=== PATIENT | male | born 1995 | race Caucasian/White ===

== ENCOUNTER 2021-12-12 05:05 | Emergency (ER) | payer OTHER, SELFPAY ==
[2021-12-12 05:07] VITALS: BP 132/87; PULSE 85; RESP 18; TEMP 36.4; O2SAT 98; BMI 22.0
[2021-12-12 06:05] LABS: Absolute Lymphocyte Count 1.34 X10^3/uL (0.83-4.51); Absolute Neutrophil Count 8.3 X10^3/uL (2.0-7.7); Basophil# 0.01 X10^3/uL; Basophil% 0.1 % (0-1); Eosinophil# 0.01 X10^3/uL; Eosinophils% 0.1 % (0-5); Hematocrit 42.6 % (40-54); Hemoglobin 14.7 g/dL (13.0-16.5); Lymphocyte # 1.34 X10^3/ul (0.83-4.51); Lymphocyte % 12.9 % (19-41); Mean Corp Hgb Conc 34.5 g/dL (32-36); Mean Corpuscular Hgb 30.9 pg (27.0-32.0); Mean Corpuscular Volume 89.5 fL (80-94); Mean Platelet Vol. 10.6 fl (6.2-12.0); Monocyte# 0.68 X10^3/uL; Monocyte% 6.6 % (0-10); NRBC Flagged by Analyzer 0 % (0-5); Neutrophil # 8.29 X10^3/uL (2.7-7.7); Platelet Count 270 K/mm3 (150-450); RBC Distribution Width CV 13.2 % (11.6-14.6); RBC Distribution Width SD 42.9 fl (35.1-43.9); Red Blood Count 4.76 M/mm3 (4.6-6.2); White Blood Count 10.4 K/mm3 (4.4-11.0)
[2021-12-12 06:31] LABS: AST(SGOT) 13 U/L (15-37); Alanine Aminotransfer ALT/SGPT 28 U/L (16-61); Albumin, Serum 3.8 g/dL (3.2-5.0); Alkaline Phosphatase 61 U/L (45-117); Anion Gap 7 (5-15); BUN 13 mg/dL (7-18); Bilirubin, Direct 0.09 mg/dL (0.00-0.30); Calcium,Total 8.6 mg/dL (8.5-10.1); Chloride 111 mmol/L (98-107); Creatinine, Serum 1.08 mg/dL (0.70-1.30); EST Glomerular Filtration Rate 87 mL/min (>60); Est Glom Filt Rate - Afr Amer 106 mL/min (>60); Estimated Creatinine Clearance 96.42 ml/min; Globulin 3.2 g/dL (2.2-4.2); Glucose 105 mg/dL (74-106); Lipase 105 U/L (73-393); Potassium 3.9 mmol/L (3.5-5.1); Sodium Level 142 mmol/L (136-145)
[2021-12-12 06:53] LABS: Squamous Epithelial Cells - UA 0 SEEN /hpf (0-5); White Blood Cells 0 SEEN /hpf (0-5)
[2021-12-12 06:54] LABS: Color, Urine Yellow (Yellow); Glucose, Dipstick Normal (Normal); Ketone-Dipstick Negative (Negative); Leukocyte Esterase-Dipstick 25 /ul (Negative); Nitrite-Dipstick Negative (Negative); Occult Blood-Urine Negative /ul (Negative); Protein-Dipstick 30 mg/dl (Negative); Urine Bilirubin Dipstick Negative (Negative); Urine Clarity Clear (Clear); Urine Urobilinogen 1 mg/dl (Normal)
[2021-12-12 07:07] LABS: Bacteria 1+ /hpf (None Seen); Mucous, Urine 2+ /hpf (<or=2+); Red Blood Cells-Urine 0-5 SEEN /hpf (0-5)
[2021-12-12 07:13] VITALS: BP 130/80; PULSE 80; RESP 16; O2SAT 99
--- NOTE | 2021-12-12 07:31 | EDS_ITS ---
HPI History of Present Illness Chief Complaint: Abd Pain Narrative Narrative: Patient is a 26-year-old male with a past medical history of IBS-D. He states that over the past 5 to 7 days he has been having intermittent right-sided abdominal pain. He states the pain can worsen if he sits up or lies down. He reports has been having loose stool but this is normal with his IBS. He denies any vomiting or dysuria. He denies any recent trauma. He denies any fevers or chills. He states that family and friends have concern this could be possible appendix because of his recurrent right-sided pain and secondary to this he presents for evaluation [facility] Medical History (Updated 12/12/21 @ 07:[address] Josesito Ralph, DO) IBS (irritable bowel syndrome) Home Medications eluxadoline 100 mg tablet (Viberzi) 100 mg PO BID 30 days #60 tabs 12/12/21 [Rx Last Taken Unknown] Allergy/AdvReac Type Severity Reaction Status Date / Time No Known Allergies Allergy Verified 12/12/21 05:13 Social History Smoking Status: Current every day smoker tobacco type: e-cigarettes ROS ROS ED Constitutional Constitutional ED: Denies chills or fever(s) ENT ENT ED: Denies sore throat Cardiovascular Cardiovascular: Denies chest pain Respiratory/Chest Respiratory/Chest: Denies cough or dyspnea Gastrointestinal Gastrointestinal: Reports abdominal pain, diarrhea and nausea; Denies vomiting Genitourinary Genitourinary ED: Denies dysuria or hematuria Musculoskeletal Musculoskeletal: Denies back pain or myalgias Integumentary Denies rash Neurologic Neurologic: Denies headache(s) Hematologic/Lymphatic Hematologic/Lymphatic: Denies easy bleeding or easy bruising EXAM Physical Exam Const Vital Signs: 12/12/21 05:07 12/12/21 07:13 Temperature 97.6 F L Temperature Source Temporal Pulse Rate 85 80 Respiratory Rate 18 16 Blood Pressure 132/87 H 130/80 H Blood Pressure Mean 102 96 Pulse Ox 98 99 Oxygen Delivery Method Room Air Room Air Positive well nourished and well developed General Appearance ED: well developed HEENT Reports moist mucous membranes Eyes PERRL and EOMs intact bilaterally General Eye ED: Negative for scleral icterus Neck supple Resp normal respiratory effort and clear to auscultation bilaterally Cardio regular rate and regular rhythm Rate: other Other Details: Radial pulses are +2-4 bilaterally are equal and symmetric GI non-distended GI Narrative: Abdomen is soft and nondistended with hyperactive bowel sounds. There is pain with palpation in the right upper and right lower quadrants. No voluntary guarding or rigidity. Negative Laboy sign. Negative heel strike psoas and obturator sign. Auscultation: hyperactive bowel sounds Palpation: soft Back/Spine no CVA tenderness Extremity normal to inspection Neuro oriented x3 and CN's II-XII intact bilaterally Sensorium / Orientation: alert Psych mental status grossly normal Skin no rashes or lesions noted MDM MDM MDM Narrative Medical decision making narrative: Patient presented to the ER afebrile and with a soft nonsurgical abdomen. History and exam does not suggest acute appendicitis or gallbladder dysfunction but there is concern for this so basic laboratory studies were obtained. Patient's white count is normal and he is afebrile. Liver enzymes are normal as well as lipase going against pancreatitis or gallbladder dysfunction. His urine shows no signs of sterile pyuria to suggest acute appendicitis and no blood to suggest a kidney stone. On reevaluation patient reports improvement of his symptoms and abdomen remains soft and nonsurgical. Therefore at this time as I feel this is most likely IBS related he will be placed on Viberzi to help with his IBS-D but as exam and work-up reveals no overt infection he is safe for discharge Lab Data Attestation: I reviewed the patient's lab results. Labs: Laboratory Results - last 24 hr 12/12/21 12/12/21 12/12/21 05:40 05:40 06:41 WBC 10.4 RBC 4.76 Hgb 14.7 Hct 42.6 MCV 89.5 MCH 30.9 MCHC 34.5 RDW Std Deviation 42.9 RDW Coeff of Magalys 13.2 Plt Count 270 MPV 10.6 Immature Gran % (Auto) 0.300 Neut % (Auto) 80.0 H Lymph % (Auto) 12.9 L [place] % (Auto) 6.6 Eos % (Auto) 0.1 Baso % (Auto) 0.1 Absolute Neuts (auto) 8.3 H Absolute Lymphs (auto) 1.34 Nucleated RBC % 0 Sodium 142 Potassium 3.9 Chloride 111 H Carbon Dioxide 24.0 Anion Gap 7 BUN 13 Creatinine 1.08 Estim Creat Clear Calc 96.42 Est GFR (MDRD) Af Amer 106 Est GFR (MDRD) Non-Af 87 BUN/Creatinine Ratio 12.0 Glucose 105 Calcium 8.6 Total Bilirubin 0.60 Direct Bilirubin 0.09 AST 13 L ALT 28 Alkaline Phosphatase 61 Total Protein 7.0 Albumin 3.8 Globulin 3.2 Lipase 105 Urine Color Yellow Urine Clarity Clear Urine pH 6.0 Ur Specific [place] 1.020 Urine Protein 30 H Urine Glucose (UA) Normal Urine Ketones Negative Urine Occult Blood Negative Urine Nitrite Negative Urine Bilirubin Negative Urine Urobilinogen 1 H Ur Leukocyte Esterase 25 H Urine RBC 0-5 SEEN Urine WBC 0 SEEN Ur Squamous Epith Cells 0 SEEN Urine Bacteria 1+ Urine Mucus 2+ Discharge Plan Triage Chief Complaint: Abd Pain ED Provider: Josesito Ralph Dx/Rx/DC Orders Clinical Impression: Nonspecific abdominal pain, Irritable bowel syndrome (IBS) Instructions: Abdominal Pain, IBS Irritable Bowel Syndrome Prescriptions: New Viberzi 100 mg tablet 100 mg PO BID 30 Days Qty: 60 1RF Rx Instructions: must administer with a meal/food Stand Alone Forms: ED Work / School Excuse Primary Care Provider: Care Physician,No Primary Referrals: Care Physician,No Primary [Primary Care Provider] - Activity Restrictions/Additional Instructions: Please follow-up with your family doctor for repeat evaluation. Your work-up today does not suggest acute appendicitis. Please take the Viberzi as directed to see if this helps control any IBS flares and if you have worsening of symptoms or further concerns please return for repeat evaluation Disposition Disposition: Home, Self Care Discharge Date/Time: 12/12/21 07:43
== END 2021-12-12 07:43 | disposition home or self-care (01) ==
PROVIDERS: Emergency Provider Emergency Medicine; Visit Provider Emergency Medicine
DX: K58.0 Irritable bowel syndrome with diarrhea (principal); F17.290 Nicotine dependence, other tobacco product, uncomplicated
CPT/HCPCS: 80048; 80076; 81001; 83690; 85025; 99283; A4216

== ENCOUNTER 2023-04-01 19:58 | Emergency (ER) | payer OTHER, SELFPAY ==
[2023-04-01 20:01] VITALS: BP 131/92; PULSE 81; RESP 18; TEMP 36.6; O2SAT 100; BMI 21.1
[2023-04-01 21:06] LABS: Absolute Lymphocyte Count 1.59 X10^3/uL (0.83-4.51); Absolute Neutrophil Count 3.6 X10^3/uL (2.0-7.7); Basophil# 0.07 X10^3/uL; Basophil% 1.2 % (0-1); Eosinophil# 0.24 X10^3/uL; Eosinophils% 4.1 % (0-5); Hematocrit 42.4 % (40-54); Hemoglobin 14.9 g/dL (13.0-16.5); Lymphocyte # 1.59 X10^3/ul (0.83-4.51); Lymphocyte % 27.3 % (19-41); Mean Corp Hgb Conc 35.1 g/dL (32-36); Mean Corpuscular Hgb 30.2 pg (27.0-32.0); Mean Platelet Vol. 10.1 fl (6.2-12.0); Monocyte# 0.31 X10^3/uL; Monocyte% 5.3 % (0-10); NRBC Flagged by Analyzer 0 % (0-5); Neutrophil % 61.9 % (47-70); Platelet Count 259 K/mm3 (150-450); RBC Distribution Width CV 12.1 % (11.6-14.6); RBC Distribution Width SD 38.4 fl (35.1-43.9); Red Blood Count 4.93 M/mm3 (4.6-6.2); White Blood Count 5.8 K/mm3 (4.4-11.0)
--- OUTSIDE RECORDS SUMMARY | 2023-04-01 21:07 | XMS RPT_ITS | CCD ---
Author Name Unknown Address [facility] [place] [address] Organization [facility] Care Team Providers Care Handcrew Foreman Name Role Phone Unavailable Primary Care Provider Unavailabl e PHYSICIAN, NONE Primary Care Physician Unavailab le Unavailable Primary Care Provider Unavailabl e Medications Current Medications Medication Drug Class(es) Dates Sig (Normalized) Sig (Original) Mucinex D Max Strength 120 mg-1200 mg oral tablet, extended release (1 source) Start: 06-20-2021 End: 06-30-2021 take 1 tablet by mouth every twelve hours Mucinex D Max Strength 120 mg-1200 mg oral tablet, extended release Dose = 1 tab(s), Oral, q12h, X 10 day(s), # 20 tab(s), 0 Refill(s) Start Date: 06/20/21 Stop Date: 06/30/21 Status: Ordered mupirocin 20 mg/ml topical cream (1 source) RNA Synthetase Inhibitor Antibacterial Start: 01-12-2015 Bactroban 2% topical cream Apply 1 kurt, Topical, TID, # 30 g, 0 Refill(s) Start Date: 01/12/15 Status: Ordered Completed/Discontinued Medications Medication Drug Class(es) Dates Sig (Normalized) Sig (Original) amitriptyline hydrochloride 10 mg oral tablet (1 source) Tricyclic Antidepressant Start: 01-21-2022 amitriptyline (ELAVIL) 10 mg tablet 10 mg. 0 01/21/2022 Active Problems Problem Classification Problem Date Documented Da te Episodic/Chronic Fracture of lower limb (1 source) Closed fracture of metatarsal bone; Translations: [Fracture of unspecified metatarsal bone(s), right foot, initial encounter for closed fracture] Episodic Results Test Name Value Interpretation Reference Range Facil ity Vital Signs Date Time Vital Sign Value Performing Clinician Facility 08-13-2021 14:24-0400 Body temperature 97.59 [degF] Siri Dale DO Work Phone: [facility] 08-13-2021 14:24-0400 Body weight 66.77 kg Siri Dale DO Work Phone: [facility] 08-13-2021 14:24-0400 Diastolic blood pressure 72 mm[Hg] Siri Dale DO Work Phone: [facility] 08-13-2021 14:24-0400 Heart rate 74 /min Siri Dale DO Work Phone: [facility] 08-13-2021 14:24-0400 Respiratory rate 18 /min Siri Dale DO Work Phone: [facility] 08-13-2021 14:24-0400 SaO2% (BldA) [Mass fraction] 97 % Siri Dale DO Work Phone: [facility] 08-13-2021 14:24-0400 Systolic blood pressure 126 mm[Hg] Siri Dale DO Work Phone: [facility] 06-20-2021 06:48-0400 Body temperature 97.88 [degF] DR SUSANNE HARP MD [facility] 06-20-2021 06:48-0400 Body weight 63.[address] SUSANNE HARP MD [facility] 06-20-2021 06:48-0400 Diastolic blood pressure 80 mm[Hg] DR SUSANNE HARP MD [facility] 06-20-2021 06:48-0400 Heart rate 91 /min DR SUSANNE HARP MD [facility] 06-20-2021 06:48-0400 Respiratory rate 16 /min DR SUSANNE HARP MD [facility] 06-20-2021 06:48-0400 Systolic blood pressure 117 mm[Hg] DR SUSANNE HARP MD [facility] Encounters Encounter Date Encounter Type Care Provider Facility Start: 02-05-2022 Telephone encounter Dre Ferraro rylee BOSWELL.INVESTIGATOR UTILITY BILL COMPLAINTS Work Phone: [facility] Procedures Date Procedure Procedure Detail Performing Clinician Start: 08-13-2021 Radex foot complete minimum 3 views Sirivalerie Leonardjose luis Dale DO Work Phone: Plan of Treatment Date Care Activity Detail Author Start: 10-25-2021 Influenza vaccination INFLUENZA (Sea son Ended) [facility] Start: 02-24-2021 DEPRESSION ASSESSMENT DEPRESSION ASS ESSMENT [facility] Start: 07-10-2020 COVID-19 VACCINE (3 - Booster for Pfizer series) COVID-19 VACCINE (3 - Booster for Pfizer series) [facility] Start: 05-06-2014 Urine microalbumin profile DTAP,TDAP,TD (1 - Tdap) [facility] Start: 05-06-2013 HEPATITIS C SCREENING HEPATITIS C SC ZENAIDA [facility] Start: 05-06-2013 HIV SCREENING HIV SCREENING [facility] Start: 05-06-2009 PEDS TO ADULT TRANSI TION ANNUAL ASSESSMENT PEDS TO ADULT TRANSITION ANNUAL ASSESSMENT [facility] Start: 2007 Adult depression screening assessment DEPRESSION SCREENING [facility] Start: 2007 PEDS TO ADULT TRANSI TION INITIAL DISCUSSION PEDS TO ADULT TRANSITION INITIAL DISCUSSION [facility] Start: 05-06-2006 HPV VACCINE (1 - Mal e 2-dose series) HPV VACCINE (1 - Male 2-dose series) [facility] Start: 05-06-2001 PNEUMOCOCCAL (1 - PCV) PNEUMOCOCCAL (1 - PCV) [facility] Start: 05-06-2000 COVID-19 VACCINE (#1) COVID-19 VACCI NE (#1) [facility] Start: 1995 HEPATITIS B (1 of 3 - 3-dose series) HEPATITIS B (1 of 3 - 3-dose series) [facility] Payers Date Payer Category Payer Unknown FOR LIFE [id number] 2021-Present [phone] [address] [place] [address] Indemnity [id number] Social History Date Type Detail Facility Tobacco smoking stat us [facility] Tobacco smoking consumption unknown [facility] Start: 1995 Sex Assigned At Not on file [facility] Tobacco smoking status Smokes to bacco daily (finding) [facility] Sex Assigned At Sex [facility] Start: 08-13-2021 End: 02-04-2022 Tobacco smoking status LAIS Light tobacco smoker [facility] History of tobacco use Cigarette Smoker [facility] Start: 08-13-2021 End: 02-04-2022 Cigarettes smoked current (pack per day) - Reported 0.25 [facility] Start: 08-13-2021 End: 02-04-2022 Tobacco use and exposure Smokeless tobacco non-user [facility] Start: 08-13-2021 End: 02-04-2022 Alcohol intake Current drinker of alcohol (finding) [facility] Start: 08-03-2021 End: 08-13-2021 Exposure to SARS-CoV-2 (event) Not sure [facility] Functional Status Date Assessment Result Facility 06-20-2021 Functional Status Janice nick [facility] Mental Status Date Assessment Result Facility 06-20-2021 Mental Status Janice hurst [facility] Clinical Notes 06-20-2021 to 02-05-2022 Telephone Encounter - Corina Jean-Baptiste - 02/05/2022 11:09 AM ESTTelephone Encounter - Dre Murillo APRN.INVESTIGATOR UTILITY BILL COMPLAINTS - 02/05/2022 11:02 AM ESTAddendum Note - Sunshine Root, PHARMACIST APPRENTICE - 08/13/2021 5:10 PM EDT Note Date & Type Note Facility 02-05-2022 Miscellaneous Notes Patient given results and verbalized understanding of instructions given. Corina Jean-Baptiste Please notify that testing positive for herpes 1, continue with medication as ordered. documented in this encounter [facility] 02-04-2022 Note HNO ID: [id number] Author: Collin Chavez MD Service: ? Author Type: Physician Type: Progress Notes Filed: 02/04/2022 7:47 AM Note Text: Patient presents with: Derm Problem: swelling and redness on right side of face x 2 days HPI: Rash: Location: right cheek Duration: 3 days. Happens twice a year in the same spot for years. Previously Dx as MRSA, staph, and eczema. Pruritis: Yes Pain: ascencio Change: spreading Bleeding/ulceration/blister/pust ule: pimples and blisters Contacts with rash: No Exposure: No new soaps, detergents, fabric softeners, lotions. Outdoor exposure: No. Change in medications: resumed cymbalta 2 weeks ago. Recent illness: No. Treatment: non-scented soap PAST MEDICAL HISTORY Diagnosis Date Anxiety Fibromyalgia MEDICATIONS: amitriptyline (ELAVIL) 10 mg tablet 10 mg. DULoxetine (CYMBALTA) 20 mg capsule 20 mg. ibuprofen (MOTRIN) 200 mg tablet Take 200 mg by mouth every 6 hours as needed. PATIENT STATES USES NEEDED FOR DISCOMFORT ALLERGIES: ALLERGIES No Known Allergies VITALS: BP 112/70 Pulse 80 Temp 36.3 ?C (97.3 ?F) Resp 16 Wt 66.2 kg (146 lb) SpO2 97% PHYSICAL EXAM: GEN: pleasant, no acute distress, alert SKIN: Right upper cheek. 4cm patch of erythema with vesicles. ASSESSMENT/PLAN: 1. 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 Discussed episodic early treatment with patient to reduce intensity and duration of outbreaks. - HSV 1,2/VZV AMP MOLECULAR DETECT - VALACYCLOVIR 1 GRAM TABLET, can discuss refills with PCP. Collin Chavez MD [facility] 08-13-2021 Note HNO ID: [id number] Author: Sunshine Root LPN Service: ? Author Type: LICENSED NURSE Type: Progress Notes Filed: 08/13/2021 5:06 PM Note Text: Summary: Post Op Shoe Post op shoe applied to patients right foot, tolerated well. No concerns voiced. Sunshine Root LPN [facility] 08-13-2021 Note HNO ID: [id number] Author: RT Jess(R) Service: ? Author Type: Technologist Type: Progress Notes Filed: 08/13/2021 3:39 PM Note Text: Radiology Service Progress Note PATIENT NAME: Jef Leiva DATE OF SERVICE: August 13, 2021 TIME: 3:38 PM PATIENT IDENTITY VERIFICATION COMPLETED USING TWO (2) IDENTIFIERS: Name and Date of confirmed by patient verbally. FALL SCREENING: Has the patient had 2 falls in the last year or 1 fall with injury or currently using an Ambulatory Assistive Device (Walker, Cane, Wheelchair, Crutches, etc.)? No PATIENT GENDER DATA: Male PATIENT RELEVANT IMPLANT DATA REVIEWED: Not Applicable RADIOLOGY DEPARTMENT: General X-ray: Exam(s) Completed: Lower Extremity X-Ray(s): Foot, Right PERIPHERAL IV DATA: Not applicable SIGNED BY: RT Jess(R) August 13, 2021 3:38 PM [facility] 08-13-2021 Miscellaneous Notes Addended by: SUNSHINE ROOT on: 08/13/2021 05:10 PM Modules accepted: Orders documented in this encounter [facility] 08-13-2021 Note HNO ID: [id number] Author: Siri Dale DO Service: ? Author Type: Physician Type: Progress Notes Filed: 08/13/2021 5:06 PM Note Text: Ankle Exam: Examination of ankle reveals . ROM normal. Strength normal. Specific test show positive Achilles Tendon Palpation Test, Heel Thump Test and Talar Tilt Test and negative Anterior Drawer Test. Foot Exam: Examination of foot reveals pain at the 5th metatarsal head. There is minor swelling with residual bruising. Pulses 2/4. ROM restricted. XRAY fracture proximal 5th metatarsal right Imp. Fracture Right 5th metatarsal Post op shoe Elevate Ice Ibuprofen OrthoAnterior Drawer Test [facility] 08-13-2021 History of Presen t illness Narrative Summary: Post Op Shoe Post op shoe applied to patients right foot, tolerated well. No concerns voiced. Sunshine Root LPN Ankle Exam: Examination of ankle reveals . ROM normal. Strength normal. Specific test show positive Achilles Tendon Palpation Test, Heel Thump Test and Talar Tilt Test and negative Anterior Drawer Test. Foot Exam: Examination of foot reveals pain at the 5th metatarsal head. There is minor swelling with residual bruising. Pulses 2/4. ROM restricted. XRAY fracture proximal 5th metatarsal right Imp. Fracture Right 5th metatarsal Post op shoe Elevate Ice Ibuprofen OrthoAnterior Drawer Test documented in this encounter [facility] 08-13-2021 Instructions Siri Dael DO - 08/13/2021 3:52 PM EDT Ice elevate documented in this encounter [facility] 08-13-2021 History of Presen t illness Narrative Radiology Service Progress Note PATIENT NAME: Jef Leiva DATE OF SERVICE: August 13, 2021 TIME: 3:38 PM PATIENT IDENTITY VERIFICATION COMPLETED USING TWO (2) IDENTIFIERS: Name and Date of confirmed by patient verbally. FALL SCREENING: Has the patient had 2 falls in the last year or 1 fall with injury or currently using an Ambulatory Assistive Device (Walker, Cane, Wheelchair, Crutches, etc.)? No PATIENT GENDER DATA: Male PATIENT RELEVANT IMPLANT DATA REVIEWED: Not Applicable RADIOLOGY DEPARTMENT: General X-ray: Exam(s) Completed: Lower Extremity X-Ray(s): Foot, Right PERIPHERAL IV DATA: Not applicable SIGNED BY: RT Jess(R) August 13, 2021 3:38 PM documented in this encounter [facility] 06-20-2021 Hospital Discharg e instructions Patient Education 06/20/2021 06:47:51 Viral Syndrome (Adult) Viral Syndrome (Adult) A viral illness may cause a number of symptoms such as fever. Other symptoms depend on the part of the body that the virus affects. If it settles in your nose, throat, and lungs, it may cause cough, sore throat, congestion, runny nose, headache, earache and other ear symptoms, or shortness of breath. If it settles in your stomach and intestinal tract, it may cause nausea, vomiting, cramping, and diarrhea. Sometimes it causes generalized symptoms like aching all over, feeling tired, loss of energy, or loss of appetite. A viral illness usually lasts anywhere from several days to several weeks, but sometimes it lasts longer. In some cases, a more serious infection can look like a viral syndrome in the first few days of the illness. You may need another exam and additional tests to know the difference. Watch for the warning signs listed below for when to seek medical advice. Home care Follow these guidelines for taking care of yourself at home: If symptoms are severe, rest at home for the first 2 to 3 days. Stay away from cigarette smoke - both your smoke and the smoke from others. You may use ubwc-czg-jeozssn acetaminophen or ibuprofen for fever, muscle aching, and headache, unless another medicine was prescribed for this. If you have chronic liver or kidney disease or ever had a stomach ulcer or gastrointestinal bleeding, talk with your healthcare provider before using these medicines. No one who is younger than 18 and ill with a fever should take aspirin. It may cause severe disease or . Your appetite may be poor, so a light diet is fine. Avoid dehydration by drinking 8 to 12, 8-ounce glasses of fluids each day. This may include water; orange juice; lemonade; apple, grape, and cranberry juice; clear fruit drinks; electrolyte replacement and sports drinks; and decaffeinated teas and coffee. If you have been diagnosed with a kidney disease, ask your healthcare provider how much and what types of fluids you should drink to prevent dehydration. If you have kidney disease, drinking too much fluid can cause it build up in the your body and be dangerous to your health. Sfwe-vxo-qjonszt remedies won't shorten the length of the illness but may be helpful for symptoms such as cough, sore throat, nasal and sinus congestion, or diarrhea. Don't use decongestants if you have high blood pressure. Follow-up care Follow up with your healthcare provider if you do not improve over the next week. Call 911 Call 911 if any of the following occur: Convulsion Feeling weak, dizzy, or like you are going to faint Chest pain, or more than mild shortness of breath When to seek medical advice Call your healthcare provider right away if any of these occur: Cough with lots of colored sputum (mucus) or blood in your sputum Chest pain, shortness of breath, wheezing, or trouble breathing Severe headache; face, neck, or ear pain Severe, constant pain in the lower right side of your belly (abdominal) Continued vomiting (can t keep liquids down) Frequent diarrhea (more than 5 times a day); blood (red or black color) or mucus in diarrhea Feeling weak, dizzy, or like you are going to faint Extreme thirst Fever of 100.4 F (38 C) or higher, or as directed by your healthcare provider [phone] [employer] [address] [place] [address]. All rights reserved. This information is not intended as a substitute for professional medical care. Always follow your healthcare professional's instructions. Follow Up Care 06/20/2021 06:37:38 With:CAPO HURST DO Address: [address] [place] [address] [place] [phone] [phone] When:2-4 days With:Call Physician Referral Address:Unknown When:2-4 days [facility] Evaluation + Plan note No data available for this section [facility] No data available for this section [facility] Reason for referral (narrative)* Diagnostic Procedure Only (Routine) - Authorized Specialty Diagnoses / Procedures Referred By Mitchell morris Referred To Contact XR IMAGING Diagnoses Closed nondisplaced fracture of metatarsal bone of right foot, unspecified metatarsal, initial encounter Procedures XR FOOT GENERAL 3V AP/LAT/OBL RIGHT RADEX FOOT COMPLETE MINIMUM 3 VIEWS Siri Dale DO [address] [address] Xr Imaging Referral ID Status Reason Start Date Expiration Date Visits Requested Visits Authorized [id number] Authorized Auto-Generat ed Referral 08/13/2021 09/12/2022 1 1 [facility] Summary Purpose Family History No Family History Records FoundNo Family History Records FoundNo Family History Records Found Advance Directives No Advanced Directives Records FoundNo Advanced Directives Records FoundNo Advanced Directives Records Found Additional Source Comments Source Comments (unrecognize d section and content) In the event this informatio n is protected by the Federal Confidentiality of Alcohol and Drug Abuse Patient Records regulations: The Federal rules restrict any use of the information to criminally investigate or prosecute any alcohol or drug abuse patient.[facility] the event this information is protected by the Federal Confidentiality of Alcohol and Drug Abuse Patient Records regulations: The Federal rules restrict any use of the information to criminally investigate or prosecute any alcohol or drug abuse patient.[facility] the event this information is protected by the Federal Confidentiality of Alcohol and Drug Abuse Patient Records regulations: The Federal rules restrict any use of the information to criminally investigate or prosecute any alcohol or drug abuse patient.[facility] the event this information is protected by the Federal Confidentiality of Alcohol and Drug Abuse Patient Records regulations: The Federal rules restrict any use of the information to criminally investigate or prosecute any alcohol or drug abuse patient.[facility] (unrecognized sect ion and content) No Status Records FoundNo Status Records FoundNo Status Records Found INFORMATION SOURCE (unrecogn ized section and content) DATE CREATED AUTHOR AUTHOR'S ORGANIZ ATION 10/09/2021 [facility] ([place]) DATE CREATED AUTHOR AUTHOR'S ORGANIZ ATION 02/06/2022 [facility] Reason for Visit (unrecogniz ed section and content) Specialty Diagnoses / Procedures Referred By Contac t Referred To Contact XR IMAGING Diagnoses Closed nondisplaced fracture of metatarsal bone of right foot, unspecified metatarsal, initial encounter Procedures XR FOOT GENERAL 3V AP/LAT/OBL RIGHT RADEX FOOT COMPLETE MINIMUM 3 VIEWS Siri Dale, DO [address] [facility] [address] [place] [address] Xr Imaging Referral ID Status Reason Start Date Expiration Date Visits Requested Visits Authorized [id number] Authorized Auto-Generat ed Referral 08/13/2021 09/12/2022 1 1 Reason Comments Foot Trauma Right Foot Pain, rol led ankle, 1 week ago, home Reason Comments Results FOR RECORDS PERTAINING TO PATIENTS WHO ARE OR HAVE BEEN ENROLLED IN A CHEMICAL DEPENDENCY/SUBSTANCEABUSE PROGRAM, SOME INFORMATION MAY BE OMITTED. This clinical summary was aggregated from multiple sources. Caution should be exercised in using it in the provision of clinical care. This summary normalizes information from multiple sources, and as a consequence, information in this document may materially change the coding, format and clinical context of patient data. In addition, data may be omitted in some cases. CLINICAL DECISIONS SHOULD BE BASED ON THE PRIMARY CLINICAL RECORDS. [facility] [employer] [facility]. provides no warranty or guarantee of the accuracy or completeness of information in this document.
[2023-04-01 21:12] LABS: Amphetamine Urine VISTA NEGATIVE (<1000 ng/mL); Barbiturate Urine VISTA NEGATIVE (< 200 ng/mL); Benzodiazepine Urine VISTA NEGATIVE (< 200 ng/mL); Cocaine Urine VISTA NEGATIVE (< 300 ng/mL); Ecstacy Urine VISTA NEGATIVE (< 500 ng/mL); Methadone Urine VISTA NEGATIVE (< 300 ng/mL); PCP Urine VISTA NEGATIVE (< 25 ng/mL); THC Urine VISTA NEGATIVE (< 50 ng/mL); Vista UDS pH Range 6
[2023-04-01 21:15] LABS: Alcohol, Blood (Medical)-Serum < 3.0 mg/dL
[2023-04-01 21:16] LABS: Anion Gap 3 (5-15); BUN 14 mg/dL (7-18); Calcium,Total 9.4 mg/dL (8.5-10.1); Chloride 108 mmol/L (98-107); Creatinine, Serum 1.08 mg/dL (0.70-1.30); EST Glomerular Filtration Rate 87 mL/min (>60); Est Glom Filt Rate - Afr Amer 105 mL/min (>60); Estimated Creatinine Clearance 91.62 ml/min; Glucose 87 mg/dL (74-106); Potassium 3.4 mmol/L (3.5-5.1); Sodium Level 136 mmol/L (136-145)
--- NOTE | 2023-04-01 22:09 | EDS_ITS ---
HPI HPI - Psych History of Present Illness Chief Complaint: Mental Health Informant: patient Onset/Context/Timing Onset: Today Context: Gradual Onset Conflict: Family (Ex-girlfriend) Timing: Intermittent Worsened by: Situational factors Relieved by: Nothing Associated Symptoms Associated Symptoms - Psych: Positive for Depressed; Negative for Change in Eating, Change in sleeping, Suicidal Thoughts, Paranoia, Visual Hallucinations or Auditory Hallucinations Narrative Narrative: Patient presents with depression and racing thoughts that became worse tonight. Patient states he got into an argument with his ex-girlfriend. Patient states that he became very emotional during the argument and shortly after. Currently, patient denies any suicidal or homicidal ideations. Patient states he feels like he just needs to talk to somebody. Patient denies any visual or auditory hallucinations. Patient denies any paranoid ideations. PFSH [facility] Medical History Anxiety Depressed Fibromyalgia Hiatal hernia IBS (irritable bowel syndrome) Home Medications NK 04/01/23 [History Last Taken Unknown] Allergy/AdvReac Type Severity Reaction Status Date / Time No Known Allergies Allergy Verified 04/01/23 20:00 Surgical History no surgical history no surgical history Social History Smoking Status: Current every day smoker tobacco type: e-cigarettes ROS ROS ED Constitutional Constitutional ED: Denies chills or fever(s) Eyes Eyes: Denies blurry vision or change in vision ENT ENT ED: Denies rhinorrhea or sore throat Cardiovascular Cardiovascular: Denies chest pain or palpitations Respiratory/Chest Respiratory/Chest: Denies cough or dyspnea Gastrointestinal Gastrointestinal: Denies nausea or vomiting Genitourinary Genitourinary ED: Denies dysuria or hematuria Musculoskeletal Musculoskeletal: Denies back pain or neck pain Integumentary Denies abscess or rash Neurologic Neurologic: Denies headache(s) or weakness Allergic/Immunologic Allergic/Immunologic ED: Denies mouth swelling or urticaria EXAM Physical Exam Const Vital Signs: 04/01/23 20:01 Temperature 98 F Temperature Source Temporal Pulse Rate 81 Respiratory Rate 18 Blood Pressure 131/92 H Blood Pressure Mean 105 Pulse Ox 100 Oxygen Delivery Method Room Air Positive well nourished and well developed General Appearance ED: well developed and NAD HEENT Reports moist mucous membranes Neck supple and no JVD Resp normal respiratory effort and clear to auscultation bilaterally Cardio Rate: regular rate Rhythm: regular rhythm GI non-tender and non-distended Palpation: soft Neuro oriented x3, CN's II-XII intact bilaterally and no sensory deficits noted [place] Coma Scale: document GCS findings Spontaneous Obeys Commands Oriented 15 Sensorium / Orientation: alert Motor Exam: strength 5/5 throughout Psych mental status grossly normal, thought process normal, activity/motor behavior normal, denies hallucinations, denies homicidal ideation and denies suicidal ideation Appearance: grossly normal Attitude: calm Activity / Motor Behavior: appropriate eye contact Speech: normal speech Thought Process: normal thought process MDM MDM MDM Narrative Medical decision making narrative: Medical screening labs will be obtained. CBC will be obtained to assess for leukocytosis and anemia. Basic metabolic profile will be obtained to assess for electrolyte abnormality and renal function. Urine tox screen will be obtained to assess for substance abuse. Serum alcohol level will be obtained to assess for alcohol intoxication. COVID-19 rapid antigen will be obtained to assess for COVID-19 infection. Lab Data Attestation: I reviewed the patient's lab results. Lab results narrative: CBC was reviewed and was within normal limits. Basic metabolic profile was reviewed and was within normal limits.. Urine tox screen was reviewed and was negative. Serum alcohol level was reviewed and was less than 3. COVID-19 rapid antigen was reviewed and was negative. Labs: Laboratory Results - last 24 hr 04/01/23 04/01/23 20:40 20:45 WBC 5.8 RBC 4.93 Hgb 14.9 Hct 42.4 MCV 86.0 MCH 30.2 MCHC 35.1 RDW Std Deviation 38.4 RDW Coeff of Magalys 12.1 Plt Count 259 MPV 10.1 Immature Gran % (Auto) 0.200 Neut % (Auto) 61.9 Lymph % (Auto) 27.3 [place] % (Auto) 5.3 Eos % (Auto) 4.1 Baso % (Auto) 1.2 H Absolute Neuts (auto) 3.6 Absolute Lymphs (auto) 1.59 Nucleated RBC % 0 Sodium 136 Potassium 3.4 L Chloride 108 H Carbon Dioxide 25.0 Anion Gap 3 L BUN 14 Creatinine 1.08 Estim Creat Clear Calc 91.62 Est GFR (MDRD) Af Amer 105 Est GFR (MDRD) Non-Af 87 BUN/Creatinine Ratio 13.0 Glucose 87 Calcium 9.4 Urine Opiates Screen NEGATIVE Urine Methadone Screen NEGATIVE Ur Barbiturates Screen NEGATIVE Ur Phencyclidine Scrn NEGATIVE Ur Amphetamines Screen NEGATIVE MDMA (Ecstasy) Screen NEGATIVE U Benzodiazepines Scrn NEGATIVE Urine Cocaine Screen NEGATIVE U Cannabinoids Screen NEGATIVE Ur Drug Screen Comment Ethyl Alcohol < 3.0 Treatment and Re-Evaluation Narrative: Patient is medically cleared for crisis evaluation. Crisis will be in to evaluate the patient. Crisis was in to evaluate the patient and felt patient could be safely plan home. Crisis will check to see if somebody can stay with him tonight. Crisis will arrange for follow-up. Patient understood and was agreeable with the plan. All questions were answered. Discharge Plan Triage Chief Complaint: Mental Health ED Provider: Ludwig Campbell Dx/Rx/DC Orders Clinical Impression: Depression Instructions: ED Depression Prescriptions: No Action NK Primary Care Provider: Care Physician,No Primary Referrals: Care Physician,No Primary [Primary Care Provider] - Disposition Disposition: Home, Self Care
--- NOTE | 2023-04-01 22:18 | NURSING ---
CALLED CRISIS AT [phone] AND FAXED THE CHART
== END 2023-04-02 00:30 | disposition home or self-care (01) ==
PROVIDERS: Emergency Provider Emergency Medicine; Visit Provider Emergency Medicine
DX: F32.A Depression, unspecified (principal); F17.290 Nicotine dependence, other tobacco product, uncomplicated; Z63.0 Problems in relationship with spouse or partner
CPT/HCPCS: 80048; 80307; 80320; 85025; 87811; 99285; G0480

== ENCOUNTER 2024-08-13 02:11 | Emergency (ER) | payer OTHER, SELFPAY ==
[2024-08-13 02:12] VITALS: BP 134/87; PULSE 121; RESP 19; TEMP 37.6; O2SAT 100; BMI 22.4
--- NOTE | 2024-08-13 02:45 | CT_ITS ---
PROCEDURE: BRAIN/HEAD WITHOUT CONTRAST 08/13/2024 REASON FOR EXAM: HEADACHE TECHNIQUE: BRAIN/HEAD WITHOUT CONTRAST Coronal and Sagittal reconstruction series were provided. One or more dose reduction techniques were used (e.g., Automated exposure control, adjustment of the mA and/or kV according to patient size, use of iterative reconstruction technique. RADIATION DOSE SUMMARY: CTDlvol: 44.99 mGy DLP: 863 mGycm COMPARISON: None. FINDINGS: Normal size of the ventricles and extra-axial spaces for the patient's age. Normal white matter tracts of the supratentorial brain. Normal basal ganglia and thalami. Normal brainstem. Normal cerebellum. There is no demonstrated extra-axial, intraparenchymal, or intraventricular hemorrhage. There are no findings of an acute ischemic infarction. Normal calvarium. There is no demonstrated fracture. Normal soft tissue structures. Normal visualized paranasal sinuses. CT/Brain/Head without Contrast IMPRESSION: Normal unenhanced CT scan of the brain. Reading Location: [id number]
[2024-08-13] MEDS: 0.9% Normal Saline (1000mL) 1,000 ML 999 ML IV (02:57)
[2024-08-13] MEDS: Metoclopramide 10 MG/2 ML Vial IV (02:57)
[2024-08-13] MEDS: DiphenhydrAMINE 50 MG/ML Syringe 25 MG IV (02:59)
[2024-08-13] MEDS: dexAMETHasone 10 MG/ML Vial IV (03:00)
[2024-08-13] MEDS: Ketorolac 30 MG/ML Syringe IV (03:02)
[2024-08-13 03:07] LABS: Absolute Lymphocyte Count 1.66 X10^3/uL (0.83-4.51); Absolute Neutrophil Count 6.8 X10^3/uL (2.0-7.7); Basophil# 0.05 X10^3/uL; Basophil% 0.5 % (0-1); Hematocrit 45.4 % (40-54); Hemoglobin 16.1 g/dL (13.0-16.5); Lymphocyte # 1.66 X10^3/ul (0.83-4.51); Lymphocyte % 17.2 % (19-41); Mean Corp Hgb Conc 35.5 g/dL (32-36); Mean Corpuscular Hgb 31.1 pg (27.0-32.0); Mean Corpuscular Volume 87.6 fL (80-94); Mean Platelet Vol. 10.6 fl (6.2-12.0); Monocyte# 1.15 X10^3/uL; Monocyte% 11.9 % (0-10); NRBC Flagged by Analyzer 0 % (0-5); Neutrophil # 6.78 X10^3/uL (2.7-7.7); Neutrophil % 70.1 % (47-70); Platelet Count 229 K/mm3 (150-450); RBC Distribution Width CV 11.9 % (11.6-14.6); RBC Distribution Width SD 38.5 fl (35.1-43.9); Red Blood Count 5.18 M/mm3 (4.6-6.2); White Blood Count 9.7 K/mm3 (4.4-11.0)
[2024-08-13 03:09] LABS: Erythrocyte Sedimentation Rate 6 mm/hr (0-20)
[2024-08-13] MEDS: Orphenadrine 60 MG/2 ML Ampul IV (03:10)
--- OUTSIDE RECORDS SUMMARY | 2024-08-13 03:19 | XMS RPT_ITS | CCD ---
Author Organization [facility] Care Team Providers Care [employer] Publishing Agent Name Role Phone Unavailable Primary Care Provider Unavailabl e PHYSICIAN, NONE Primary Care Physician Unavailab le Unavailable Primary Care Provider Unavailabl e Ludwig Campbell Attending Unavailable Care Physician, No Primary Primary Care Unava ilable Medications Current Medications Medication Drug Class(es) Dates [...] 0 Refill(s) Start Date: 01/12/15 Status: Ordered [place] (Nk) (1 source) Start: 04-01-2023 [place] (Nk) Active April 01, 2023 12:00am Completed/Discontinued Medications Medication Drug Class(es) Dates Sig (Normalized) Sig (Original) amitriptyline hydrochloride 10 mg oral tablet (1 source) Tricyclic Antidepressant Start: 01-21-2022 amitriptyline (ELAVIL) 10 mg tablet 10 mg. 0 01/21/2022 Active Comment on above: 10 mg. DULoxetine 20 mg delayed release oral capsule (1 source) Serotonin and Norepinephrine Reuptake Inhibitor Start: 01-22-2022 DULoxetine (CYMBALTA) 20 mg capsule 20 mg. 0 01/22/2022 Active Comment on above: 20 mg. eluxadoline 100 mg oral tablet (2 sources) mu-Opioid Receptor Agonist Start: 12-12-2021 End: 04-01-2023 take 1 tablet by mouth twice daily at mealtime Eluxadoline (Viberzi) 100 mg tablet Discontinued 100 MG PO TWICE A DAY 60 December 11, 2021 11:00pm April 01, 2023 8:00pm must administer with a meal/food ibuprofen 200 mg oral tablet (3 sources) Nonsteroidal Anti-inflammatory Drug take 1 tablet by mouth every six hours as needed ibuprofen (MOTRIN) 200 mg tablet Take 200 mg by mouth every 6 hours as needed. PATIENT STATES USES NEEDED FOR DISCOMFORT 0 Active Comment on above: Take 200 mg by mouth every 6 hours as needed. PATIENT STATES USES NEEDED FOR DISCOMFORT valACYclovir 1000 mg oral tablet (1 source) Herpesvirus Nucleoside Analog DNA Polymerase Inhibitor, Herpes Simplex Virus Nucleoside Analog DNA Polymerase Inhibitor, Herpes Zoster Virus Nucleoside Analog DNA Polymerase Inhibitor Start: 02-04-2022 take 2 tablets by mouth every twelve hours valACYclovir (VALTREX) 1 gram Indications: Rash , Herpes gladiatorum Take 2 tablets by mouth every 12 hours. Take at onset of HSV outbreak. 12 tablet 0 02/04/2022 Active Comment on above: [facility] Take at onset of HSV outbreak. Problems Problem Classification Problem Date Documented Da te Episodic/Chronic Abdominal pain (2 sources) Nonspecific abdominal pain; Translations: [Unspecified abdominal pain] 12-20-2021 Episodic Fracture of lower limb (1 source) Closed fracture of metatarsal bone; Translations: [Fracture of unspecified metatarsal bone(s), right foot, initial encounter for closed fracture] Episodic Mood disorders (1 source) Depressive disorder; Translations: [Depression] 04-01-2023 Chronic Mood disorders (1 source) Mood disorders; Translations: [Depression, unspecified] Onset: 04-08-2023 Other gastrointestinal disorders (2 sources) Irritable bowel syndrome; Translations: [Irritable bowel syndrome without diarrhea] 12-20-2021 Chronic Results Test Name Value Interpretation Reference Range Facility Emergency Department Summary on 04-02-2023 Emergency Department Summary [facility] Medical Records Department [address] [place] [address] Emergency Department Summary 04/01/23 MR#: [id number] Acct: [id number] Name: GERI ROSAS Jr. Rep #: [id number] : 1995 27 From: Ludwig Campbell DO PCP: Care Physician,No Primary Status:REG ER Location: ED HPI HPI - Psych History of Present Illness Chief Complaint: Mental Health Informant: patient Onset/Context/Timing Onset: Today Context: Gradual Onset Conflict: Family (Ex-girlfriend) Timing: Intermittent Worsened by: Situational factors Relieved by: Nothing Associated Symptoms Associated Symptoms - Psych: Positive for Depressed; Negative for Change in Eating, Change in sleeping, Suicidal Thoughts, Paranoia, Visual Hallucinations or Auditory Hallucinations Narrative Narrative: Patient presents with depression and racing thoughts that became worse tonight. Patient states he got into an argument with his ex-girlfriend. Patient states that he became very emotional during the argument and shortly after. Currently, patient denies any suicidal or homicidal ideations. Patient states he feels like he just needs to talk to somebody. Patient denies any visual or auditory hallucinations. Patient denies any paranoid ideations. [facility] Medical History Anxiety Depressed Fibromyalgia Hiatal hernia IBS (irritable bowel syndrome) Home Medications NK 04/01/23 [History Last Taken Unknown] Allergy/AdvReac Type Severity Reaction Status Date / Time No Known Allergies Allergy Verified 04/01/23 20:00 Surgical History no surgical history no surgical history Social History Smoking Status: Current every day smoker tobacco type: e-cigarettes ROS ROS ED Constitutional Constitutional ED: Denies chills or fever(s) Eyes Eyes: Denies blurry vision or change in vision ENT ENT ED: Denies rhinorrhea or sore throat Cardiovascular Cardiovascular: Denies chest pain or palpitations Respiratory/Chest Respiratory/Chest: Denies cough or dyspnea Gastrointestinal Gastrointestinal: Denies nausea or vomiting Genitourinary Genitourinary ED: Denies dysuria or hematuria Musculoskeletal Musculoskeletal: Denies back pain or neck pain Integumentary Denies abscess or rash Neurologic Neurologic: Denies headache(s) or weakness Allergic/Immunologic Allergic/Immunologic ED: Denies mouth swelling or urticaria EXAM Physical Exam Const Vital Signs: 04/01/23 20:01 Temperature 98 F Temperature Source Temporal Pulse Rate 81 Respiratory Rate 18 Blood Pressure 131/92 H Blood Pressure Mean 105 Pulse Ox 100 Oxygen Delivery Method Room Air Positive well nourished and well developed General Appearance ED: well developed and NAD HEENT Reports moist mucous membranes Neck supple and no JVD Resp normal respiratory effort and clear to auscultation bilaterally Cardio Rate: regular rate Rhythm: regular rhythm GI non-tender and non-distended Palpation: soft Neuro oriented x3, CN's II-XII intact bilaterally and no sensory deficits noted [place] Coma Scale: document GCS findings Spontaneous Obeys Commands Oriented 15 Sensorium / Orientation: alert Motor Exam: strength 5/5 throughout [address] [facility] [place], [address] MCV (RBC) [Entitic vol] 86.0 fL Normal 80-94 [facility] Comment on above: Performed By: #### L 505.5000, L501.9100, L100.0100, L500.2500 #### [facility] [address] [place], [address] Monocytes/100 WBC (Bld) 5.3 % Normal 0-10 [facility] Comment on above: Performed By: #### L 505.5000, L501.9100, L100.0100, L500.2500 #### [facility] [address] [facility] [place], [address] Neutrophils/100 WBC (Bld) 61.9 % Normal 47-70 [facility] Comment on above: Performed By: #### L 505.5000, L501.9100, L100.0100, L500.2500 #### [facility] [address] [facility] [place], [address] Nucleated RBC (Bld) [#/Vol] 0 10*3/uL Normal 0-5 [facility] Comment on above: Performed By: #### L 505.5000, L501.9100, L100.0100, L500.2500 #### [facility] [address] [place], [address] Platelet mean volume (Bld) [Entitic vol] 10.1 fL Normal 6.2-12.0 [facility] Comment on above: Performed By: #### L 505.5000, L501.9100, L100.0100, L500.2500 #### [facility] [address] [place], [address] Platelets (Bld) [#/Vol] 259 10*3/uL Normal 150-450 [facility] Comment on above: Performed By: #### L 505.5000, L501.9100, L100.0100, L500.2500 #### [facility] [address] [place], [address] RBC (Bld) [#/Vol] 4.93 10*6/uL Normal 4.6-6.2 [facility] Comment on above: Performed By: #### L 505.5000, L501.9100, L100.0100, L500.2500 #### [facility] [address] [place], [address] RDW SD 38.4 fl Normal 35.1-43.9 [facility] Comment on above: Performed By: #### L 505.5000, L501.9100, L100.0100, L500.2500 #### [facility] [address] [place], [address] WBC (Bld) [#/Vol] 5.8 10*3/uL Normal 4.4-11.0 [facility] Comment on above: Performed By: #### L 505.5000, L501.9100, L100.0100, L500.2500 #### [facility] [address] [place], [address] COVID 19 AG RAPID ([facility] Neto)on 04-01-2023 SARS-CoV-2 (COVID-19) RNA YUNIER+probe Ql (Unsp spec) *Negative results from patients with symptom onset beyond five days should be treated as presumptive and confirmed by a molecular assay if clinically necessary. Negative results should not be used as the sole basis for treatment or for patient management. SARS-CoV-2 Ag Resp Ql IA.rapid *Positive results do not differentiate between SARS-CoV and SARS-CoV-2. If differentiation of the specific SARS virus is desired an additional sample and an additional order is required. SARS-CoV-2 Ag Resp Ql IA.rapid * This test has not been FDA cleared or approved; the test has been authorized by FDA under an Emergency Use Authorization (EAU) for use by laboratories certified under CLIA that meet the requirements to perform moderate, high, or waived complexity tests. SARS-CoV-2 Ag Resp Ql IA.rapid Normal Reference Range: Negative SARS-CoV-2 (COVID 19) Negative RAPID METHOD [employer] COVID19 Ag Card Normal [facility] Comment on above: Performed By: #### M 100.505 #### [facility] [address] [place] [address], [address] COVID-19 virus antigen assay Ordered By: Ludwig Campbell on 04-01-2023 SARS-CoV-2 (COVID-19) Ag IA.rapid Ql (Resp) [facility] Determination of erythrocyte mean corpuscular volume (MCV)Ordered By: ED PROVIDER on 04-01-2023 MCV (RBC) [Entitic vol] 86.0 fL 80-94 [facility] Erythrocyte distribution wid th ratioOrdered By: ED PROVIDER on 04-01-2023 Erythrocyte distribution width (RBC) [Ratio] 12.1 % 11.6-14.6 [facility] Erythrocyte distribution wid th standard deviationOrdered By: ED PROVIDER on 04-01-2023 Erythrocyte distribution width (RBC) [Entitic vol] 38.4 fL 35.1-43.9 [facility] Hematocrit Auto (Bld) [Volum e fraction]Ordered By: ED PROVIDER on 04-01-2023 Hematocrit (Bld) [Volume fraction] 42.4 % 40-54 [facility] Immature granulocytes/100 WB C Auto (Bld)Ordered By: ED PROVIDER on 04-01-2023 Immature granulocytes/100 WBC (Bld) 0.200 % 0.0-0.9 [facility] Comment on above: IG% - Immature Granu locytes (promyelocytes, myelocytes and metamyelocytes) > 1% indicates that a LEFT SHIFT is Present. Laboratory - Chemistry and C hemistry - challengeOrdered By: ED PROVIDER on 04-01-2023 CO2 [Moles/Vol] 25.0 mmol/L 21.0-32.0 [facility] Urea nitrogen/Creatinine [Mass ratio] 13.0 mg/mg 10-20 [facility] Laboratory - Drug toxicology Ordered By: ED PROVIDER on 04-01-2023 Amphetamines Ql (U) Negative <1000 ng/mL [facility] Benzodiazepines Ql (U) Negative < 200 ng/mL [facility] Cannabinoids Screen Ql (U) Negative < 50 ng/mL [facility] Cocaine Ql (U) Negative < 300 ng/mL [facility] Opiates Ql (U) Negative < 300 ng/mL [facility] Laboratory - Hematology and Cell countsOrdered By: ED PROVIDER on 04-01-2023 MCH (RBC) [Entitic mass] 30.2 pg 27.0-32.0 [facility] MCHC (RBC) [Mass/Vol] 35.1 g/dL 32-36 [facility] Nucleated RBC/100 WBC (Bld) [Ratio] 0 % 0-5 [facility] Platelet mean volume (Bld) [Entitic vol] 10.1 fL 6.2-12.0 [facility] Platelets (Bld) [#/Vol] 259 10*3/uL 150-450 [facility] No Panel InformationOrdered By: ED PROVIDER on 04-01-2023 MDMA (Ecstasy) Screen Negative < 500 ng/mL [facility] Urine Barbiturates Screen Negative < 200 ng/mL [facility] Urine Drug Screen Comment [facility] Comment on above: CONFIRMATORY TESTING FOR ALL POSITIVE URINE DRUG SCREENRESULTS WILL ONLY BE SENT OUT UPON PHYSICIAN ORDER. VISTA Urine Drug Screen methods provide only preliminaryanalytical test results. A more specific alternate chemicalmethod must be used in order to obtain a confirmedanalytical result. Gas chromatography/mass spectrometery(GC/MS) is the preferred confirmatory method. Clinicalconsideration and professional judgement should be appliedto any drug of abuse test result, particularly whenpreliminary positive results are used. URINE TCA TESTING MUST BE ORDERED SEPARATELY. USE TESTMNEMONIC: [facility] Urine Methadone Screen Negative < 300 ng/mL [facility] Estimated Creatinine Clearance Calc 91.62 ml/min [facility] Estimated GFR (MDRD) Amer 105 mL/min >60 [facility] Comment on above: GFR Calc Estimated GFR (MDRD) Non-Af Amer 87 mL/min >60 [facility] Comment on above: Non- GFR Calc Ethyl Alcohol Level < 3.0 mg/dL [facility] Comment on above: The serum:whole bloo d ethanol ratio is approximately 1.14and varies slightly with hematocrit. Medical Alcohol reference interval and critical value innon-tolerant individuals; 50 - 100 Impairment 100 Intoxication 100 - 250 Severe Poisoning 250 - 400 Deep/possible fatal coma RBC Auto (Bld) [#/Vol]Ordere d By: ED PROVIDER on 04-01-2023 RBC (Bld) [#/Vol] 4.93 10*6/uL 4.6-6.2 [facility] Serum or plasma calcium nilsa urement (mass/volume)Ordered By: ED PROVIDER on 04-01-2023 Calcium [Mass/Vol] 9.4 mg/dL 8.5-10.1 [facility] Serum or plasma creatinine m easurement (mass/volume)Ordered By: ED PROVIDER on 04-01-2023 Creatinine [Mass/Vol] 1.08 mg/dL 0.70-1.30 [facility] Comment on above: The validity of the calculated GFR & GFRAA in patients over 70 years has not been determined. Clinical correlation is essential. Serum or plasma urea nitroge n measurement (mass/volume)Ordered By: ED PROVIDER on 04-01-2023 Urea nitrogen [Mass/Vol] 14 mg/dL 7-18 [facility] Thin prep Papanicolaou smear with manual screeningOrdered By: ED PROVIDER on 04-01-2023 Thin prep Papanicolaou smear with manual screening 3 5-15 [facility] Urine Drug Screen (VISTA)on 04-01-2023 AMPHETAMINES Negative Normal <1000 ng/mL [facility] Comment on above: Performed By: #### L 505.5000, L501.9100, L100.0100, L500.2500 #### [facility] [address] [place], [address] BARBITIURATES Negative Normal < 200 ng/mL [facility] Comment on above: Performed By: #### L 505.5000, L501.9100, L100.0100, L500.2500 #### [facility] [address] [place], [address] BENZODIAZIPINE Negative Normal < 200 ng/mL [facility] Comment on above: Performed By: #### L 505.5000, L501.9100, L100.0100, L500.2500 #### [facility] [address] [place], [address] COCAINE Negative Normal < 300 ng/mL [facility] Comment on above: Performed By: #### L 505.5000, L501.9100, L100.0100, L500.2500 #### [facility] [address] [place], [address] ECSTACY Negative Normal < 500 ng/mL [facility] Comment on above: Performed By: #### L 505.5000, L501.9100, L100.0100, L500.2500 #### [facility] [address] [place], [address] METHADONE Negative Normal < 300 ng/mL [facility] Comment on above: Performed By: #### L 505.5000, L501.9100, L100.0100, L500.2500 #### [facility] [address] [place], [address] OPIATES Negative Normal < 300 ng/mL [facility] Comment on above: Performed By: #### L 505.5000, L501.9100, L100.0100, L500.2500 #### [facility] [address] [place] [id number] PCP Negative Normal < 25 ng/mL [facility] Comment on above: Performed By: #### L 505.5000, L501.9100, L100.0100, L500.2500 #### [facility] [address] [place], [address] THC Negative Normal < 50 ng/mL [facility] Comment on above: Performed By: #### L 505.5000, L501.9100, L100.0100, L500.2500 #### [facility] [address] [place], [address] VISTA UDS PH 6 Normal [facility] Comment on above: Performed By: #### L 505.5000, L501.9100, L100.0100, L500.2500 #### [facility] [address] [place], [address] Urine phencyclidine (PCP) de tectionOrdered By: ED PROVIDER on 04-01-2023 Phencyclidine Ql (U) Negative < 25 ng/mL [facility] CNPNon [facility]-05-20[facility] GERI ROSAS ([id number]) 1995 M Date Time Provider Department 02/05/22 ROSAS MURILLO [facility] During your visit today, we recorded the following information about you: Rosas Murillo APRN.CNP 02/05/2022 11:04 AM Signed Please notify that testing positive for herpes 1, continue with medication as ordered. Brea Conley 02/05/2022 11:10 AM Signed Patient given results and verbalized understanding of instructions given. Brea Conley Allergies As of Date: 02/05/2022 (No Known Allergies) Date Reviewed: 02/04/2022 Reviewed by: Brea Conley - Fully Assessed Reason for Visit: Results [95] Prescriptions as of 02/05/2022 - amitriptyline (ELAVIL) 10 mg tablet 10 mg. - DULoxetine (CYMBALTA) 20 mg capsule 20 mg. - valACYclovir (VALTREX) 1 gram Take 2 tablets by mouth every 12 hours. Take at onset of HSV outbreak. - ibuprofen (MOTRIN) 200 mg tablet Take 200 mg by mouth every 6 hours as needed. PATIENT STATES USES NEEDED FOR DISCOMFORT Problem List As Of Date: 02/05/2022 (None) Encounter Status:Closed by BREA CONLEY [facility]05[facility] Office Visit ([facility] ) GERI ROSAS ([id number]) 1995 M Date Time Provider Department 02/04/22 7:15 AM COLLIN CHAVEZ [facility] During your visit today, we recorded the following information about you: Temperature Pulse Respiration Blood pressure 97.3 degrees 80/minute 16/minute 112/70 Weight 66.2 kg Collin Chavez MD 02/04/2022 7:47 AM Signed Patient presents with: Derm Problem: swelling and redness on right side of face x 2 days HPI: Rash: Location: right cheek Duration: 3 days. Happens twice a year in the same spot for years. Previously Dx as MRSA, staph, and eczema. Pruritis: Yes Pain: ascencio Change: spreading Bleeding/ulceration/blister/pu stule: pimples and blisters Contacts with rash: No [...] discuss refills with PCP. 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 Take at onset of HSV outbreak.Disp: 12 tabletRfl: 0 HSV 1,2/VZV AMP MOLECULAR DETECT [SQHSVVZV] Order #: [id number]. #:[id number] Prescriptions as of 02/04/2022 - amitriptyline (ELAVIL) 10 mg tablet 10 mg. - DULoxetine (CYMBALTA) 20 mg capsule 20 mg. - valACYclovir (VALTREX) 1 gram Take 2 tablets by mouth every 12 hours. Take at onset of HSV outbreak. - ibuprofen (MOTRIN) 200 mg tablet Take 200 mg by mouth every 6 hours as needed. PATIENT STATES USES NEEDED FOR DISCOMFORT Problem List As Of Date: 02/04/2022 (None) Prescriptions ordered this encounter Disp Refills Start End VALACYCLOVIR 1 GRAM TABLET 12 t* 0 02/04/2022 Class: Print RX Route: ORAL Sig: Take 2 tablets by mouth every 12 hours. Take at onset of HSV outbreak. Letter Text Encounter Status:Closed by COLLIN CHAVEZ on 02/04/22 Normal [facility] HSV+VZV DNA YUNIER+probe Ql (Un sp spec)on 02-04-2022 HSV 1 DNA YUNIER+probe Ql (Unsp spec) Positive for Herpes Simplex virus Type 1 by Nucleic Acid Amplification. Abnormal Negative [facility] Comment on above: Order Comment: Stoney mcdaniel Type: MICROBIAL ISOLATE Ordering Facility: [facility] Address: [address] [place] [address] Performed By: #### 3 3027-4 #### [facility] CLIA [id number] [address] [place] [address] [place] HSV 2 DNA YUNIER+probe Ql (Unsp spec) Negative for Herpes Simplex virus Type 2 by Nucleic Acid Amplification. Normal Negative [facility] Comment on above: Order Comment: Stoney mcdaniel Type: MICROBIAL ISOLATE Ordering Facility: [facility] Address: [address] [place] [address] Performed By: #### 3 3027-4 #### [facility] CLIA [id number] [address] [place] [address] [place] VZV DNA YUNIER+probe Ql (Unsp spec) Negative for Varicella Zoster virus by Nucleic Acid Amplification. Normal Negative [facility] Comment on above: Order Comment: Stoney mcdaniel Type: MICROBIAL ISOLATE Ordering Facility: [facility] Address: [address] [place] [address] Performed By: #### 3 3027-4 #### [facility] CLIA [id number] [address] [place] [address] [place] Absolute lymphocyte counton 12-12-2021 Lymphocytes Auto (Unsp spec) [#/Vol] 1.34 10*3/uL 0.83-4.51 [facility] Work Phone: Basophil percentageon 2021 Basophil percentage 0 SEEN /hpf 0-[address] [facility] Work Phone: Basophils/100 WBC (Bld) 0.1 % 0-1 [facility] Work Phone: Bilirubin [Mass/Vol] 0.60 mg/dL 0.20-1.00 [facility] Work Phone: Comment on above: For patients on eltr ombopag therapy, use of Dimension [place] TBIL is not recommended. Chloride [Moles/Vol] 111 mmol/L 98-107 [facility] Work Phone: Eosinophils/100 WBC (Bld) 0.1 % 0-5 [facility] Work Phone: Glucose [Mass/Vol] 105 mg/dL 74-106 [facility] Work Phone: [phone] Comment on above: Fasting Glucose resu lt from 100 to 125 mg/dL suggests IMPAIRED HOMEOSTASIS per A.D.A. criteria. Neutrophils (Bld) [#/Vol] 8.3 10*3/uL 2.0-7.7 [facility] Work Phone: Neutrophils/100 WBC (Bld) 80.0 % 47-70 [facility] Work Phone: Potassium [Moles/Vol] 3.9 mmol/L 3.5-5.1 [facility] Work Phone: Protein [Mass/Vol] 7.0 g/dL 6.4-8.2 [facility] Work Phone: Sodium [Moles/Vol] 142 mmol/L 136-145 [facility] Work Phone: [phone] WBC (Bld) [#/Vol] 10.4 10*3/uL 4.4-11.0 [facility] Work Phone: Bilirubin Test strip Ql (U)o n 12-12-2021 Bilirubin Ql (U) Negative Negative [facility] Work Phone: Blood erythrocytes count (nu mber/volume)on 12-12-2021 RBC (Bld) [#/Vol] 4.76 10*6/uL 4.6-6.2 [facility] Work Phone: Blood hemoglobin measurement (mass/volume)on 12-12-2021 Hemoglobin (Bld) [Mass/Vol] 14.7 g/dL 13.0-16.5 [facility] Work Phone: Blood lymphocytes/100 leukoc yteson 12-12-2021 Lymphocytes/100 WBC (Bld) 12.9 % 19-41 [facility] Work Phone: Blood monocytes/100 leukocyt eson 12-12-2021 Monocytes/100 WBC (Bld) 6.6 % 0-10 [facility] Work Phone: Blood platelet mean volumeon 12-12-2021 Platelet mean volume (Bld) [Entitic vol] 10.6 fL 6.2-12.0 [facility] Work Phone: Determination of erythrocyte mean corpuscular volume (MCV)on 12-12-2021 MCV (RBC) [Entitic vol] 89.5 fL 80-94 [facility] Work Phone: Direct bilirubinon 2 Bilirubin.direct [Mass/Vol] 0.09 mg/dL 0.00-0.30 [facility] Work Phone: Hematocrit Auto (Bld) [Volum e fraction]on 12-12-2021 Hematocrit (Bld) [Volume fraction] 42.6 % 40-54 [facility] Work Phone: Ketones Test strip Ql (U)on 12-12-2021 Ketones Ql (U) Negative Negative [facility] Work Phone: Laboratory - Chemistry and C hemistry - challengeon 12-12-2021 ALP [Catalytic activity/Vol] 61 U/L 45-117 [facility] Work Phone: ALT [Catalytic activity/Vol] 28 U/L 16-61 [facility] Work Phone: CO2 [Moles/Vol] 24.0 mmol/L 21.0-32.0 [facility] Work Phone: Globulin (S) [Mass/Vol] 3.2 g/dL 2.2-4.2 [facility] Work Phone: Lipase [Catalytic activity/Vol] 105 U/L 73-393 [facility] Work Phone: Urea nitrogen/Creatinine [Mass ratio] 12.0 mg/mg 10-20 [facility] Work Phone: Laboratory - Hematology and Cell countson 12-12-2021 Erythrocyte distribution width (RBC) [Entitic vol] 42.9 fL 35.1-43.9 [facility] Work Phone: Erythrocyte distribution width (RBC) [Ratio] 13.2 % 11.6-14.6 [facility] Work Phone: Immature granulocytes/100 WBC (Bld) 0.300 % 0.0-0.9 [facility] Work Phone: Comment on above: IG% - Immature Granu locytes (promyelocytes, myelocytes and metamyelocytes) > 1% indicates that a LEFT SHIFT is Present. MCH (RBC) [Entitic mass] 30.9 pg 27.0-32.0 [facility] Work Phone: Nucleated RBC/100 WBC (Bld) [Ratio] 0 % 0-5 [facility] Work Phone: MCHC Auto (RBC) [Mass/Vol]on 12-12-2021 MCHC (RBC) [Mass/Vol] 34.5 g/dL 32-36 [facility] Work Phone: Mucus LM Ql (Urine sed)on Mucus Ql (Urine sed) 2+ /hpf [facility] Work Phone: Nitrite Test strip Ql (U)on 12-12-2021 Nitrite Ql (U) Negative Negative [facility] Work Phone: No Panel Informationon 12-12 Estimated Creatinine Clearance Calc 96.42 ml/min [facility] Work Phone: Estimated GFR (MDRD) Amer 106 mL/min >60 [facility] Work Phone: Comment on above: GFR Calc Estimated GFR (MDRD) Non-Af Amer 87 mL/min >60 [facility] Work Phone: Comment on above: Non- GFR Calc Platelets bldon 12-12-2021 Platelets (Bld) [#/Vol] 270 10*3/uL 150-450 [facility] Work Phone: Protein Test strip Ql (U)on 12-12-2021 Protein Ql (U) 30 mg/dl Negative [facility] Work Phone: Serum or plasma albumin nilsa urement (mass/volume)on 12-12-2021 Albumin [Mass/Vol] 3.8 g/dL 3.2-5.0 [facility] Work Phone: Serum or plasma calcium nilsa urement (mass/volume)on 12-12-2021 Calcium [Mass/Vol] 8.6 mg/dL 8.5-10.1 [facility] Work Phone: Serum or plasma creatinine m easurement (mass/volume)on 12-12-2021 Creatinine [Mass/Vol] 1.08 mg/dL 0.70-1.30 [facility] Work Phone: Comment on above: The validity of the calculated GFR & GFRAA in patients over 70 years has not been determined. Clinical correlation is essential. Serum or plasma urea nitroge n measurement (mass/volume)on 12-12-2021 Urea nitrogen [Mass/Vol] 13 mg/dL 7-18 [facility] Work Phone: Squamous epithelial cells de tection in urine sediment by light microscopyon 12-12-2021 Epithelial cells.squamous LM Ql (Urine sed) 0 SEEN /hpf 0-5 [facility] Work Phone: Thin prep Papanicolaou smear with manual screeningon 12-12-2021 Thin prep Papanicolaou smear with manual screening 13 U/L 15-37 [facility] Work Phone: Thin prep Papanicolaou smear with manual screening 7 5-15 [facility] Work Phone: Urine blood detectionon 11-24 RBC Ql (U) Negative Negative [facility] Work Phone: RBC Ql (U) 0-5 SEEN /hpf 0-5 [facility] Work Phone: Urine clarityon 12-12-2021 Clarity (U) Clear Clear [facility] Work Phone: Urine color determinationon 12-12-2021 Color (U) Yellow Yellow [facility] Work Phone: Urine glucose detectionon Glucose Ql (U) Normal mg/dl Normal [facility] Work Phone: Urine leukocyte esterase det ection by dipstickon 12-12-2021 Leukocyte esterase Test strip Ql (U) 25 /ul Negative [facility] Work Phone: Urine pHon 12-12-2021 pH (U) 6.0 [pH] 5.0 - 8.0 [facility] Work Phone: Urine sediment bacteria coun t by microscopy (number/high power field)on 12-12-2021 Bacteria LM.HPF (Urine sed) [#/Area] 1 /[HPF] None Seen [facility] Work Phone: Urine specific gravity measu rementon 12-12-2021 Specific gravity (U) [Rel density] 1.020 1.002-1.03 0 [facility] Work Phone: Urobilinogen Auto test strip Ql (U)on 12-12-2021 Urobilinogen Ql (U) 1 mg/dl Normal [facility] Work Phone: CNOVon 08-13-2021 CNOV Office Visit ([facility] ) GERI ROSAS ([id number]) 1995 M Date Time Provider Department 08/13/21 1:40 PM SIRI DALE [facility] During your visit today, we recorded the following information about you: Temperature Pulse Respiration Blood pressure 97.6 degrees 74/minute 18/minute 126/72 Weight 66.8 kg Siri Dale DO 08/13/2021 5:06 PM Signed Ankle Exam: Examination of ankle reveals . [...] shoe Elevate Ice Ibuprofen OrthoAnterior Drawer Test Siri Dale DO 08/13/2021 3:53 PM Signed Ice elevate Eduardo Matthew LPN 08/13/2021 5:06 PM Signed Post op shoe applied to patients right foot, tolerated well. No concerns voiced. DEANNA Madison LPN 08/13/2021 5:10 PM Signed Addended by: EDUARDO MATTHEW on: 08/13/2021 05:10 PM Modules accepted: Orders Referring Provider: SELF [200] Allergies As of Date: 08/13/2021 (No Known Allergies) Date Reviewed: 08/13/2021 Reviewed by: Siri Dale DO - Fully Assessed Reason for Visit: Foot Trauma [766] Cmt: Right Foot Pain, rolled ankle, 1 week ago, home Primary Visit Diagnosis:Closed nondisplaced fracture of metatarsal bone of right foot, unspecified metatarsal, initial encounter [S92.301A] Order(s):XR FOOT GENERAL 3V AP/LAT/OBL RIGHT [[id number]] Order #: [id number] FUTURE XR FOOT GENERAL 3V AP/LAT/OBL RIGHT [[id number]] Order #: [id number]. #:[id number] - OP SHOE [[id number]] Order #: [id number] Prescriptions as of 08/13/2021 - ibuprofen (MOTRIN IB) 200 mg tablet Take 200 mg by mouth every 6 hours as needed. PATIENT STATES USES NEEDED FOR DISCOMFORT Problem List As Of Date: 08/13/2021 (None) Other instructions from your clinician: Ice elevate Disposition: Return in about 4 weeks (around 09/10/2021), or if symptoms worsen or fail to improve. Follow-up and Disposition History for Encounter Date Provider Department Center 08/13/2021 [id number] DALE [facility] Encounter Status:Closed by SIRI DALE on 08/13/21 [facility] No Panel Informationon 08-13 [facility] [id number] 06-20-2021 Date of Onset [id number] Invalid Interpretation Code [facility] [place] Comment on above: Performed By: #### Evette KEY COVD19 #### [place] [address] Employed in Healthcare No [facility] [place] Comment on above: Performed By: #### Evette KEY COVD19 #### [place] [address] First Test No [facility] [place] Comment on above: Performed By: #### F SHAHID COVD19 #### [place] [address] Hospitalized No [facility] [place] Comment on above: Performed By: #### F SHAHID COVD19 #### [place] [address] ICU No [facility] [place] Comment on above: Performed By: #### F SHAHID COVD19 #### [place] [address] Not [facility] [place] Comment on above: Performed By: #### F SHAHID COVD19 #### [place] [address] Resides in Congregate Care Setting No Normal [facility] [place] Comment on above: Performed By: #### F SHAHID COVD19 #### [place] [address] SARS-CoV-2 (COVID-19) RNA YUNIER+probe Ql (Unsp spec) Negative Normal Negative [facility] [place] Comment on above: Performed By: #### F SHAHID COVD19 #### [place] [address] SARS-CoV-2 (COVID-19) RNA YUNIER+probe Ql (Unsp spec) Normal [facility] [place] Comment on above: Result Comment: Nega tive results do not preclude SARS-CoV-2 infection and should not be used as the sole basis for patient management decisions. Negative results must be combined with clinical observations, patient history, and epidemiological information. There is a risk of false negative values resulting from improperly collected, transported, or handled specimens. There is a risk of false negative values due to the presence of sequence variants in the pathogen targets of the assay, procedural errors, amplification inhibitors in specimens, or inadequate numbers of organisms for amplification. GAMA SARS-CoV-2 Assay is a Real-Time reverse-transcriptase polymerase chain reaction (RT-PCR) based qualitative in vitro diagnostic test intended for the qualitative detection of nucleic acid from the SARS-CoV-2 in nasopharyngeal swab specimens collected from individuals suspected of COVID-19 by their healthcare provider. Testing is limited to laboratories certified under the Clinical Laboratory Improvement Amendments of 1988 (CLIA), 42 U.S.C. ?263a, to perform moderate and high complexity tests. COVID-19 Int Performed By: #### F SHAHID COVD19 #### [place] [address] Symptomatic as Defined by CDC Yes Normal [facility] [place] Comment on above: Performed By: #### F SHAHID COVD19 #### [address] [address] FLURSVon 06-20-2021 Flu A PCR (AO) Negative Normal Negative [facility] [place] Comment on above: Result Comment: Posi tive Results: Positive Flu A/B or RSV for by PCR. Positive test results do not rule out bacterial infection or co-infection with other pathogens. Test results should be interpreted in conjunction with other laboratory and clinical data. Negative Results: Negative for by PCR. Negative test results do not preclude influenza virus or RSV infection and should not be used as the sole basis for diagnosis, treatment, or other management decisions. There is a risk of false negative RSV results when at low concentration and in the presence of co-infection with high concentration of influenza A. Invalid Results: An Invalid result (INV) was obtained. The test was repeated with similar results. REPEAT COLLECTION AND TESTING IS RECOMMENDED. The [employer] Flu A/B & RSV Assay is a real-time polymerase chain reaction (PCR) based qualitative in vitro diagnostic test for the direct detection and differentiation of influenza A virus, influenza B virus, and respiratory syncytial virus (RSV) nucleic acid in nasopharyngeal swab (ANIMAL GENETICIST) specimens from patients with signs and symptoms of respiratory infection in conjunction with clinical and laboratory findings. The test is intended for use as an aid in the differential diagnosis of influenza A virus, influenza B virus, and RSV in humans and is not intended to detect influenza C. Performed By: #### F LURSV, COVD19 #### [address] [address] Flu B PCR (AO) Negative Normal Negative [facility] [place] Comment on above: Result Comment: Posi tive Results: Positive Flu A/B or RSV for by PCR. Positive test results do not rule out bacterial infection or co-infection with other pathogens. Test results should be interpreted in conjunction with other laboratory and clinical data. Negative Results: Negative for by PCR. Negative test results do not preclude influenza virus or RSV infection and should not be used as the sole basis for diagnosis, treatment, or other management decisions. There is a risk of false negative RSV results when at low concentration and in the presence of co-infection with high concentration of influenza A. Invalid Results: An Invalid result (INV) was obtained. The test was repeated with similar results. REPEAT COLLECTION AND TESTING IS RECOMMENDED. The Gama Flu A/B & RSV Assay is a real-time polymerase chain reaction (PCR) based qualitative in vitro diagnostic test for the direct detection and differentiation of influenza A virus, influenza B virus, and respiratory syncytial virus (RSV) nucleic acid in nasopharyngeal swab (ANIMAL GENETICIST) specimens from patients with signs and symptoms of respiratory infection in conjunction with clinical and laboratory findings. The test is intended for use as an aid in the differential diagnosis of influenza A virus, influenza B virus, and RSV in humans and is not intended to detect influenza C. Performed By: #### F SHAHID COVD19 #### [address] [address] RSV PCR (AO) Negative Normal Negative [facility] [place] Comment on above: Result Comment: Posi tive Results: Positive Flu A/B or RSV for by PCR. Positive test results do not rule out bacterial infection or co-infection with other pathogens. Test results should be interpreted in conjunction with other laboratory and clinical data. Negative Results: Negative for by PCR. Negative test results do not preclude influenza virus or RSV infection and should not be used as the sole basis for diagnosis, treatment, or other management decisions. There is a risk of false negative RSV results when at low concentration and in the presence of co-infection with high concentration of influenza A. Invalid Results: An Invalid result (INV) was obtained. The test was repeated with similar results. REPEAT COLLECTION AND TESTING IS RECOMMENDED. The [employer] Flu A/B & RSV Assay is a real-time polymerase chain reaction (PCR) based qualitative in vitro diagnostic test for the direct detection and differentiation of influenza A virus, influenza B virus, and respiratory syncytial virus (RSV) nucleic acid in nasopharyngeal swab (ANIMAL GENETICIST) specimens from patients with signs and symptoms of respiratory infection in conjunction with clinical and laboratory findings. The test is intended for use as an aid in the differential diagnosis of influenza A virus, influenza B virus, and RSV in humans and is not intended to detect influenza C. Performed By: #### F SHAHID COVD19 #### [address] [address] LABORATORYOrdered By: Mirna Plummer on 06-20-2021 ADMITTED TO INTENSIVE CARE UNIT FOR CONDITION OF INTEREST:FIND:PT:^P ATIENT:ORD: No (06/20/21 7:06 AM) Invalid Interpretation Code AO Auto Urine SS EMPLOYED IN A HEALTHCARE SETTING:FIND:PT:^ZACH TIENT:ORD: No (06/20/21 7:06 AM) Invalid Interpretation Code AO Auto Urine SS FIRST TEST FOR CONDITION OF INTEREST:FIND:PT:^P ATIENT:ORD: No (06/20/21 7:06 AM) Invalid Interpretation Code AO Auto Urine SS FLUAV RNA YUNIER+probe Ql (Upper resp) Negative (06/20/21 7:06 AM) Invalid Interpretation Code Negative AO Auto Urine SS FLUBV RNA YUNIER+probe Ql (Upper resp) Negative (06/20/21 7:06 AM) Invalid Interpretation Code Negative AO Auto Urine SS HAS SYMPTOMS RELATED TO CONDITION OF INTEREST:FIND:PT:^P ATIENT:ORD: Yes (06/20/21 7:06 AM) Invalid Interpretation Code AO Auto Urine SS Illness or injury onset date and time [id number] Invalid Interpretation Code AO Auto Urine SS Patient was hospitalized because of this condition No (06/20/21 7:06 AM) Invalid Interpretation Code AO Auto Urine SS status Not (06/20/21 7:06 AM) Invalid Interpretation Code AO Auto Urine SS RESIDES IN A CONGREGATE CARE SETTING:FIND:PT:^PA TIENT:ORD: No (06/20/21 7:06 AM) Invalid Interpretation Code AO Auto Urine SS RSV RNA YUNIER+probe Ql (Upper resp) Negative (06/20/21 7:06 AM) Invalid Interpretation Code Negative AO Auto Urine SS SARS-CoV-2 (COVID-19) RNA YUNIER+probe Ql (Resp) Negative (06/20/21 7:06 AM) Invalid Interpretation Code Negative AO Auto Urine SS SARS-CoV-2 (COVID-19) RNA YUNIER+probe Ql (Unsp spec) Negative results do not preclude SARS-CoV-2 infection and should not be used as the sole basis for patient management decisions. Negative results must be combined with clinical observations, patient history, and epidemiological information.There is a risk of false negative values resulting from improperly collected, transported, or handled specimens.There is a risk of false negative values due to the presence of sequence variants in the pathogen targets of the assay, procedural errors, amplification inhibitors in specimens, or inadequate numbers of organisms for amplification.GAMA SARS-CoV-2 Assay is a Real-Time reverse-transcriptase polymerase chain reaction (RT-PCR) based qualitative in vitro diagnostic test intended for the qualitative detection of nucleic acid from the SARS-CoV-2 in nasopharyngeal swab specimens collected from individuals suspected of COVID-19 by their healthcare provider. Testing is limited to laboratories certified under the Clinical Laboratory Improvement Amendments of 1988 (CLIA), 42 U.S.C. 263a, to perform moderate and high complexity tests. Invalid Interpretation Code AO Auto Urine SS [facility] 05-09-2021 [facility] REPORT Normal [facility] DATE OF SERVICE: CHIEF COMPLAINT: Rash on face. HISTORY OF PRESENT ILLNESS: Patient is a 26-year-old male who presents today with a 1-day history of a rash on his face. He states that he has had this before. He has been told varying diagnoses, but he says that Bactrim usually works for this the ointment, but it has never been this large before, so he was wanting to come in in order to be evaluated for this. PAST MEDICAL HISTORY: Frequent headaches, depression, mental health issues, dependency on alcohol or drugs. PAST SURGICAL HISTORY: Reviewed and considered. ALLERGIES: No known drug allergies. No allergies to other sources such as bees or foods. SOCIAL HISTORY: Admits to weekly alcohol use. Denies tobacco use. REVIEW OF SYSTEMS: General: Denies fevers, chills, body aches. Skin: Admits to a rash. Admits to a yellow discoloration of the rash. Admits to yellow drainage. Respiratory: Denies cough, wheezing, shortness of breath. PATIENT NAME: GERI ROSAS [address] [facility] [address] MEDICAL REC #: [id number] [place] [address] [facility] REPORT STATCARE PHYSICIAN Cardiovascular: Denies dyspnea, chest pain, palpitations. PHYSICAL EXAMINATION: Vital Signs: Blood pressure 115/77, pulse 86, respiration rate 18, temperature 98.3, pulse oximetry on room air 97%. General: Patient is alert and oriented x3. Appears to be in no acute distress. Skin: There is a raised, pustular rash that has a yellow crusted color to it on the patient's right cheek. Appears to be staph in nature. No lesions around the mouth. No other lesions besides the affected area of question. DIAGNOSIS: Staphylococcus infection. PLAN: I sent in Bactroban ointment for him as well as Bactrim. I think it is larger, and I do not think the Bactroban will take this away completely, that is why I am going to add the Bactrim on as well to see if it will come on its own. However, if it is not improving with these 2 things, I do recommend him following up at Dermatology for further evaluation and treatment since he has had multiple bouts of this before, and he is to keep the area clean. Patient agrees and understands the plan at this time. Patient was stable upon discharge from [facility]. Frannie Reyes PA-C PATIENT NAME: GERI ROSAS [address] [facility] [address] MEDICAL REC #: [id number] [place] [address] [facility] REPORT STATCARE PHYSICIAN [id number] [facility] File#: [id number] END OF DOCUMENT / CHANGE LOG FOLLOWS Last Edited By Elec. Signed By Frannie Reyes #[email or web address] Frannie Reyes PAC #[email or web address] on 05/13/2021 09:52 ET on 05/13/2021 09:52 ET Revision Number - 2 Verified/Reviewed by 05/13/21 [id number] PATIENT NAME: GERI ROSAS [address] [facility] [address] MEDICAL REC #: [id number] [place] [address] [facility] REPORT STATCARE PHYSICIAN Normal [facility] Vital Signs Date Time Vital Sign Value Performing Clinician Facility 04-01-2023 20:01-0500 Body height 172.72 cm [facility] 04-01-2023 20:01-0500 Body mass index (BMI) [Ratio] 21.1 kg/m2 [facility] 04-01-2023 20:01-0500 Body temperature 98 [degF] [facility] 04-01-2023 20:01-0500 Body weight 63.04 kg [facility] 04-01-2023 20:01-0500 Diastolic blood pressure 92 mm[Hg] [facility] 04-01-2023 20:01-0500 Heart rate 81 /min [facility] 04-01-2023 20:01-0500 Respiratory rate 18 /min [facility] 04-01-2023 20:01-0500 SaO2% (BldA) [Mass fraction] 100 % [facility] 04-01-2023 20:01-0500 Systolic blood pressure 131 mm[Hg] [facility] 12-12-2021 07:13-0400 Diastolic blood pressure 80 mm[Hg] [facility] Work Phone: 12-12-2021 07:13-0400 Heart rate 80 /min [facility] Work Phone: 12-12-2021 07:13-0400 Respiratory rate 16 /min [facility] Work Phone: 12-12-2021 07:13-0400 SaO2% (BldA) [Mass fraction] 99 % [facility] Work Phone: 12-12-2021 07:13-0400 Systolic blood pressure 130 mm[Hg] [facility] Work Phone: 12-12-2021 05:07-0400 Body height 172.72 cm [facility] Work Phone: 12-12-2021 05:07-0400 Body mass index (BMI) [Ratio] 22 kg/m2 [facility] Work Phone: 12-12-2021 05:07-0400 Body temperature 97.6 [degF] [facility] Work Phone: 12-12-2021 05:07-0400 Body weight 65.77 kg [facility] Work Phone: 08-13-2021 14:24-0400 Body temperature 97.59 [degF] Siri Dale DO Work Phone: [facility] 08-13-2021 14:24-0400 Body weight 66.77 kg Siri Dale DO Work Phone: [facility] 08-13-2021 14:24-0400 Diastolic blood pressure 72 mm[Hg] Siri Dale DO Work Phone: [facility] 08-13-2021 14:24-0400 Heart rate 74 /min Siri Dale DO Work Phone: [facility] 08-13-2021 14:24-0400 Respiratory rate 18 /min Siri Dale DO Work Phone: [facility] 08-13-2021 14:24-0400 SaO2% (BldA) [Mass fraction] 97 % Siri Dale DO Work Phone: [facility] 08-13-2021 14:24-0400 Systolic blood pressure 126 mm[Hg] Siri Dale DO Work Phone: [facility] 06-20-2021 06:48-0400 Body temperature 97.88 [degF] DR SUSANNE HARP MD [facility] 06-20-2021 06:48-0400 Body weight 63.[address] SUSANNE HARP MD [facility] 06-20-2021 06:48-0400 Diastolic blood pressure 80 mm[Hg] DR SUSANNE HARP MD [facility] 06-20-2021 06:48-0400 Heart rate 91 /min DR SUSANNE HARP MD [facility] 06-20-2021 06:48-0400 Respiratory rate 16 /min DR SUSANNE HARP MD [facility] 06-20-2021 06:48-0400 Systolic blood pressure 117 mm[Hg] DR SUSANNE HARP MD [facility] Encounters Encounter Date Encounter Type Care Provider Facility Start: 04-01-2023 End: 04-02-2023 [facility] Facility[facility] Start: 04-01-2023 End: 04-02-2023 Emergency department patient visit [facility] Work Phone: Start: 02-05-2022 Telephone encounter Rosas mckee APRN.CNP Work Phone: [facility] Comment on above: Results Start: 02-04-2022 End: 02-04-2022 ambulatory Facility[facility] Start: 12-12-2021 End: 12-12-2021 Emergency department patient visit [facility] Start: 08-13-2021 End: 08-13-2021 ambulatory [facility] Work Phone: [facility] Comment on above: Foot Trauma (PT STRU CK RT FOOT ON CONCRETE STEP 3 WK AGO) Start: 08-13-2021 End: 08-13-2021 Patient encounter procedure [facility] Work Phone: [facility] Start: 08-13-2021 End: 08-13-2021 Patient encounter procedure Siri Dale DO Work Phone: [facility] Comment on above: Closed nondisplaced fracture of metatarsal bone of right foot, unspecified metatarsal, initial encounter (Primary Dx) Start: 06-20-2021 End: 06-20-2021 Emergency department patient visit DR SUSANNE HARP MD [facility] Start: 05-09-2021 End: 05-09-2021 Subsequent hospital visit by physician [facility] Provider IF BLANCHE MCKEON Comment on above: RASH ON FACE Procedures Date Procedure Procedure Detail Performing Clinician Start: 04-01-2023 Viral antigen assay Start: 08-13-2021 Radex foot complete minimum 3 views Siri Dale DO Work Phone: Plan of Treatment Date Care Activity Detail Author Start: 04-01-2023 [facility] Start: 04-01-2023 Referral to service [facility] Start: 04-01-2023 Suicide precautions [facility] Start: 10-25-2021 Influenza vaccination INFLUENZA (Season Ended) [facility] luli Start: 02-24-2021 DEPRESSION ASSESSMENT DEPRESSION ASSESSMENT [facility] Start: 07-10-2020 COVID-19 VACCINE (3 - Booster for Pfizer series) COVID-19 VACCINE (3 - Booster for Pfizer series) [facility] Start: 05-06-2014 Urine microalbumin profile DTAP,TDAP,TD (1 - Tdap) [facility] Start: 05-06-2013 HEPATITIS C SCREENING HEPATITIS C SCREENING [facility] Start: 05-06-2013 HIV SCREENING HIV SCREENING [facility] Start: 05-06-2009 PEDS TO ADULT TRANSITION ANNUAL ASSESSMENT PEDS TO ADULT TRANSITION ANNUAL ASSESSMENT [facility] Start: 2007 Adult depression screening assessment DEPRESSION SCREENING [facility] Start: 2007 PEDS TO ADULT TRANSITION INITIAL DISCUSSION PEDS TO ADULT TRANSITION INITIAL DISCUSSION [facility] Start: 05-06-2006 HPV VACCINE (1 - Male 2-dose series) HPV VACCINE (1 - Male 2-dose series) [facility] Start: 05-06-2001 PNEUMOCOCCAL (1 - PCV) PNEUMOCOCCAL (1 - PCV) [facility] Start: 05-06-2000 COVID-19 VACCINE (#1) COVID-19 VACCINE (#1) [facility] Start: 1995 HEPATITIS B (1 of 3 - 3-dose series) HEPATITIS B (1 of 3 - 3-dose series) [facility] Patient Education [facility] Work Phone: Patient referral [facility] Work Phone: Payers Date Payer Category Payer Self-pay 2023 Unknown [id number] 2021 Unknown [employer] LIFE [id number] 2021-Present [phone] [address] [place] [address] Indemnity [id number] Unknown [id number] Social History Date Type Detail Facility Start: 12-12-2021 End: 04-01-2023 Tobacco smoking status GAIS Tobacco smoking consumption unknown [facility] Start: 1995 Sex Assigned At Not on file [facility] Tobacco smoking status Smokes to bacco daily (finding) [facility] Sex Assigned At Sex [facility] Start: 08-13-2021 End: 02-04-2022 Tobacco smoking status NHIS Light tobacco smoker [facility] History of tobacco use Cigarette Smoker [facility] Start: 08-13-2021 End: 02-04-2022 Cigarettes smoked current (pack per day) - Reported 0.25 [facility] Start: 08-13-2021 End: 02-04-2022 Tobacco use and exposure Smokeless tobacco non-user [facility] Start: 08-13-2021 End: 02-04-2022 Alcohol intake Current drinker of alcohol (finding) [facility] Start: 08-03-2021 End: 08-13-2021 Exposure to SARS-CoV-2 (event) Not sure [facility] Start: 1995 Sex Assigned At Male [facility] Functional Status Date Assessment Result Facility 06-20-2021 Functional Status [facility] Mental Status Date Assessment Result Facility 06-20-2021 Mental Status [facility] Clinical Notes 06-20-2021 to 04-02-2023 Note Date & Type Note Facility 04-02-2023 Discharge summary Note Date/Time April 01, 2023 10:13pm [facility] Medical Records Department [address] [place] [address] Emergency Department Summary 04/01/23 MR#: [id number] Acct: [id number] Name: GERI ROSAS RANULFO [place] Rep #:[id number] : 1995 27 From: Ludwig Lopez PCP: Care Physician,No Primary Status :REG ER Location: ED HPI HPI - Psych History of Present Illness Chief Complaint: Mental Health Informant: patient Onset/Context/Timing Onset: Today Context: Gradual Onset Conflict: Family (Ex-girlfriend) Timing: Intermittent Worsened by: Situational factors Relieved by: Nothing Associated Symptoms Associated Symptoms - Psych: Positive for Depressed; Negative for Change in Eating, Change in sleeping, Suicidal Thoughts, Paranoia, Visual Hallucinations or Auditory Hallucinations Narrative Narrative: Patient presents with depression and racing thoughts that became worse tonight. Patient states he got into an argument with his ex-girlfriend. Patient states that he became very emotional during the argument and shortly after. Currently,patient denies any suicidal or homicidal ideations. Patient states he feels like he just needs to talk to somebody. Patient denies any visual or auditory hallucinations. Patient denies any paranoid ideations. [facility] Medical History Anxiety Depressed Fibromyalgia Hiatal hernia IBS (irritable bowel syndrome) Home Medications NK 04/01/23 [History Last Taken Unknown] Allergy/AdvReac Type Severity Reaction Status Date / Time No Known Allergies Allergy Verified 04/01/23 20:00 Surgical History no surgical history no surgical history Social History Smoking Status: Current every day smoker tobacco type: e-cigarettes ROS ROS ED Constitutional Constitutional ED: Denies chills or fever(s) Eyes Eyes: Denies blurry vision or change in vision ENT ENT ED: Denies rhinorrhea or sore throat Cardiovascular Cardiovascular: Denies chest pain or palpitations Respiratory/Chest Respiratory/Chest: Denies cough or dyspnea Gastrointestinal Gastrointestinal: Denies nausea or vomiting Genitourinary Genitourinary ED: Denies dysuria or hematuria Musculoskeletal Musculoskeletal: Denies back pain or neck pain Integumentary Denies abscess or rash Neurologic Neurologic: Denies headache(s) or weakness Allergic/Immunologic Allergic/Immunologic ED: Denies mouth swelling or urticaria EXAM Physical Exam Const Vital Signs: 04/01/23 20:01 Temperature 98 F Temperature Source Temporal Pulse Rate 81 Respiratory Rate 18 Blood Pressure 131/92 H Blood Pressure Mean 105 Pulse Ox 100 Oxygen Delivery Method Room Air Positive well nourished and well developed General Appearance ED: well developed and NAD HEENT Reports moist mucous membranes Neck supple and no JVD Resp normal respiratory effort and clear to auscultation bilaterally Cardio Rate: regular rate Rhythm: regular rhythm GI non-tender and non-distended Palpation: soft Neuro oriented x3, CN's II-XII intact bilaterally and no sensory deficits noted Jarret Coma Scale: document GCS findings Spontaneous Obeys Commands Oriented 15 Sensorium / Orientation: alert Motor Exam: strength 5/5 throughout Psych mental status grossly normal, thought process normal, activity/motor behavior normal, denies hallucinations, denies homicidal ideation and denies suicidal ideation Appearance: grossly normal Attitude: calm Activity / Motor Behavior: appropriate eye contact Speech: normal speech Thought Process: normal thought process MDM MDM MDM Narrative Medical decision making narrative: Medical screening labs will be obtained. CBC will be obtained to assess for leukocytosis and anemia. Basic metabolic profile will be obtained to assess forelectrolyte abnormality and renal function. Urine tox screen will be obtained to assess for substance abuse. Serum alcohol level will be obtained to assess for alcohol intoxication. COVID-19 rapid antigen will be obtained to assess forCOVID-19 infection. Lab Data Attestation: I reviewed the patient's lab results. Lab results narrative: CBC was reviewed and was within normal limits. Basic metabolic profile was reviewed and was within normal limits.. Urine tox screen was reviewed and was negative. Serum alcohol level was reviewed and was less than 3. COVID-19 rapidantigen was reviewed and was negative. Labs: Laboratory Results - last 24 hr 04/01/23 04/01/23 20:40 20:45 WBC 5.8 RBC 4.93 Hgb 14.9 Hct 42.4 MCV 86.0 MCH 30.2 MCHC 35.1 RDW Std Deviation 38.4 RDW Coeff of Magalys 12.1 Plt Count 259 MPV 10.1 Immature Gran % (Auto) 0.200 Neut % (Auto) 61.9 Lymph % (Auto) 27.3 Burt % (Auto) 5.3 Eos % (Auto) 4.1 Baso % (Auto) 1.2 H Absolute Neuts (auto) 3.6 Absolute Lymphs (auto) 1.59 Nucleated RBC % 0 Sodium 136 Potassium 3.4 L Chloride 108 H Carbon Dioxide 25.0 Anion Gap 3 L BUN 14 Creatinine 1.08 Estim Creat Clear Calc 91.62 Est GFR (MDRD) Af Amer 105 Est GFR (MDRD) Non-Af 87 BUN/Creatinine Ratio 13.0 Glucose 87 Calcium 9.4 Urine Opiates Screen NEGATIVE Urine Methadone Screen NEGATIVE Ur Barbiturates Screen NEGATIVE Ur Phencyclidine Scrn NEGATIVE Ur Amphetamines Screen NEGATIVE MDMA (Ecstasy) Screen NEGATIVE U Benzodiazepines Scrn NEGATIVE Urine Cocaine Screen NEGATIVE U Cannabinoids Screen NEGATIVE Ur Drug Screen Comment Ethyl Alcohol < 3.0 Treatment and Re-Evaluation Narrative: Patient is medically cleared for crisis evaluation. Crisis will be in to evaluate the patient. Crisis was in to evaluate the patient and felt patient could be safely plan home. Crisis will check to see if somebody can stay with him tonight. Crisis will arrange for follow-up. Patient understood and was agreeable with the plan. All questions were answered. Discharge Plan Triage Chief Complaint: Mental Health ED Provider: Ludwig Campbell Dx/Rx/DC Orders Clinical Impression: Depression Instructions: ED Depression Prescriptions: No Action NK Primary Care Provider: Care Physician,No Primary Referrals: Care Physician,No Primary [Primary Care Provider] - Disposition Disposition: Home, Self Care What to do if you have Problems For any increased pain, shortness of breath, bleeding, nausea or vomiting, chestpain, or any unexpected problems, contact your Primary Care Provider. Call [facility] ([phone]) or report to the closest Emergency Room. Call 911 if necessary. 04/01/23 6312 <Electronically signed by Ludwig Campbell DO> Cosigner Signature (if applicable): CC: No Primary Care Physician ~ Signed [facility] Work Phone: [phone] Miscellaneous Notes* Telephone Encounter - Brea Conley - 02/05/2022 11:09 AM EST Patient given results and verbalized understanding of instructions given. 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 documented in this encounterReg[facility]12-12-2022 NoteHNO ID: [id number] Author: Collin Chavez MD Service: ? Author [...] eczema. Pruritis: Yes Pain: ascencio Change: spreading Bleeding/ulceration/blister/pustule: pimples and blisters Contacts with rash: No [...] TABLET, can discuss refills with PCP. Collin Chavez, [facility]06-20-2022 NoteHNO ID: [id number] Author: Eduardo Matthew LPN Service: ? Author Type: LICENSED NURSE Type: Progress Notes Filed: 08/13/2021 5:06 PM Note Text: Summary: Post Op Shoe Post op shoe applied to patients right foot, tolerated well. No concerns voiced. [facility]2022 NoteHNO ID: [id number] Author: RT Jess(R) Service: ? Author Type: Technologist Type: Progress Notes Filed: 08/13/2021 3:39 PM Note Text: Radiology Service Progress Note PATIENT NAME: Geri Rosas DATE OF SERVICE: August 13, 2021 TIME: [...] BY: RT Jess(R) August 13, 2021 3:38 [facility]06-20-2022 Miscellaneous Notes* Addendum Note - Eduardo Matthew LPN - 08/13/2021 5:10 PM EDT Addended by: EDUARDO MATTHEW on: 08/13/2021 05:10 PM Modules accepted: Orders documented in this encounterRegency Hospital [facility]06-20-2022 NoteHNO ID: [id number] Author: Siri Dale, DO Service: ? Author Type: Physician Type: [...] op shoe Elevate Ice Ibuprofen Orth[facility]Anterior Drawer [facility]-2022 History of Present illness Narrative* Eduardo Matthew LPN - 08/13/2021 4:00 PM EDTSummary: Post Op Shoe Post op shoe applied to patients right foot, tolerated well. No concerns voiced. Eduardo Matthew LPN * Siri Dale DO - 08/13/2021 2:42 PM EDT Ankle Exam: Examination of ankle reveals . ROM normal. Strength normal. Specific test show positive Achilles Tendon Palpation Test, Heel Thump Test and Talar Tilt Test andnegative Anterior Drawer Test. Foot Exam: Examination of foot reveals pain at the 5th metatarsal head. There is minor swelling with residual bruising. Pulses 2/4. ROM restricted. XRAY fracture proximal 5th metatarsal right Imp. Fracture Right 5th metatarsal Post op shoe Elevate Ice Ibuprofen OrthoAnterior Drawer Test documented in this encounterRegency Hospital [facility]06-20-2022 Instructions* Patient Instructions* Siri Dale DO - 08/13/2021 3:52 PM EDT Ice elevate documented in this encounterRegency Hospital [facility]06-20-2022 History of Present illness Narrative* Olivier Bates, (R) - 08/13/2021 3:38 PM EDT Radiology Service Progress Note PATIENT NAME: Geri Rosas DATE OF SERVICE: August 13, 2021 TIME: 3:38 PM PATIENT IDENTITY VERIFICATION COMPLETED USING TWO (2) IDENTIFIERS: Name and Date of confirmedby patient verbally. FALL SCREENING: Has the patient had 2 falls in the last year or 1 fall with injury or currently using an Ambulatory Assistive Device (Walker, Cane, Wheelchair, Crutches, etc.)? No PATIENT GENDER DATA: Male PATIENT RELEVANT IMPLANT DATA REVIEWED: Not Applicable RADIOLOGY DEPARTMENT: General X-ray: Exam(s) Completed: Lower Extremity X- Ray(s): Foot, Right PERIPHERAL IV DATA: Not applicable SIGNED BY: RT Jess(R) August 13, 2021 3:38 PM documented in this encounterRegency Hospital [facility]04-27-2022 Hospital Discharge instructions Patient Education 06/20/2021 06:47:51 Viral Syndrome [...] tests to know the difference. Watch for thewarning signs listed below for when to seek medical advice. Home care Follow these guidelines for taking care of yourself at home: If symptoms are severe, rest at home for the first 2 to 3 days. Stay away from cigarette smoke - both your smoke and the smoke from others. You may use sibp-weo-urvouxo acetaminophen or ibuprofen for fever, muscle aching, [...] replacement and sports drinks; and decaffeinated teas andcoffee. If you have been diagnosed with a kidney disease, ask your healthcare provider how much andwhat types of fluids you should drink to prevent dehydration. If you have kidney disease, drinking too much fluid can cause it build up in the your body and be dangerous to your health. Unnl-gft-iqvbxcy remedies won't shorten the length of the [...] or as directed by your healthcare provider [id number] [employer]. [address] [place] [address], [place] [address]. All rights reserved. This information is not intended as a substitute for professional medical care. Always follow yourhealthcare professional's instructions. Follow Up Care 06/20/2021 06:37:38 With:CAPO HURST DO Address: [address] [place] [address] Physicians [place] [phone] When:2-4 days With:Call Physician Referral Address:Unknown When:2-4 days [facility] Evaluation + Plan note No data available for this section [facility] Evaluation note* Diagnosis Closed nondisplaced fracture of metatarsal bone of right foot, unspecified metatarsal, initial encounter- Primary documented in this encounter [facility]Evaluation noteNo assessment information availableWHighland District Hospital Work Phone: Hospital Discharge instructions Additional Instructions Please follow-up with your family doctor for repeat evaluation. Your work-up today does not suggest acute appendicitis. Please take the Viberzi as directed to see if this helps control any IBS flares and if you have worsening of symptoms or further concerns please return for repeat evaluationWHighland District Hospital Work Phone: Progress note No data available for this section [facility] Reason for referral (narrative)* Diagnostic Procedure Only (Routine) - Authorized Specialty Diagnoses / Procedures Referred By Mitchell morris Referred To Contact XR IMAGING Diagnoses Closed nondisplaced fracture of metatarsal bone of right foot, unspecified metatarsal, initial encounter Procedures XR FOOT GENERAL 3V AP/LAT/OBL RIGHT RADEX FOOT COMPLETE MINIMUM 3 VIEWS Siri Dale DO [address] [address] Xr Imaging Referral ID Status Reason Start Date Expiration Date Visits Requested Visits Authorized [id number] Authorized Auto-Generat ed Referral 08/13/2021 09/12/2022 1 1 [facility] Summary Purpose Family History No Family History Records FoundNo Family History Records FoundNo Family History Records FoundNo Family History Records Found Advance Directives No Advanced Directives Records Found Advance Directive Response Recorded Date/ Time Living Will No December 12 5:13am Power of Education Officer No December 12, 2021 5:13am Advance Directive Response Recorded Date/ Time Living Will No April 01 8:24pm Power of Education Officer No April 01, 2023 8:24pm Chief Complaint and Reason for Visit Chief Complaint ABD PAIN Chief Complaint mental health Additional Source Comments Source Comments (unrecognize d section and content) In the event this informatio n is protected by the Federal Confidentiality of Alcohol and Drug Abuse Patient Records regulations: The Federal rules restrict any use of the information to criminally investigate or prosecute any alcohol or drug abuse patient.[facility] WestIn the event this information is protected by the Federal Confidentiality of Alcohol and Drug Abuse Patient Records regulations: The Federal rules restrict any use of the information to criminally investigate or prosecute any alcohol or drug abuse patient.[facility] WestIn the event this information is protected by the Federal Confidentiality of Alcohol and Drug Abuse Patient Records regulations: The Federal rules restrict any use of the information to criminally investigate or prosecute any alcohol or drug abuse patient.[facility] WestIn the event this information is protected by the Federal Confidentiality of Alcohol and Drug Abuse Patient Records regulations: The Federal rules restrict any use of the information to criminally investigate or prosecute any alcohol or drug abuse patient.[facility] (unrecognized sect ion and content) No Status Records FoundNo Status Records FoundNo Status Records FoundNo Status Records Found INFORMATION SOURCE (unrecogn ized section and content) DATE CREATED AUTHOR 05/13/2021 [facility] Ce michelle [place] DATE CREATED AUTHOR AUTHOR'S ORGANIZ ATION 10/09/2021 [facility] ([place]) DATE CREATED AUTHOR AUTHOR'S ORGANIZ ATION 02/06/2022 [facility] DATE CREATED AUTHOR AUTHOR'S ORGANIZ ATION 04/10/2023 [facility] Reason for Visit (unrecogniz ed section and content) Reason Comments Foot Trauma PT STRUCK RT FOOT ON CONCRETE STEP 3 WK AGO Specialty Diagnoses / Procedures Referred By Contac t Referred To Contact XR IMAGING Diagnoses Closed nondisplaced fracture of metatarsal bone of right foot, unspecified metatarsal, initial encounter Procedures XR FOOT GENERAL 3V AP/LAT/OBL RIGHT RADEX FOOT COMPLETE MINIMUM 3 VIEWS Siri Dale DO [address] [facility] [address] [place] [address] Xr Imaging Referral ID Status Reason Start Date Expiration Date Visits Requested Visits Authorized [id number] Authorized Auto-Generat ed Referral 08/13/2021 09/12/2022 1 1 Reason Comments Foot Trauma Right Foot Pain, rol led ankle, 1 week ago, home Reason Comments Results Goals (unrecognized section and content) Goals may be documented in a n alternate section Care Teams (unrecognized sec tion and content) Team Status: Active Member Role Status Dates No Primary Care Physician Primary Care Provider Active Team Status: Inactive Member Role Status Dates No Primary Care Physician Primary Care Provider Active Dr. Ludwig Campbell , DO Emergency Provider Active FOR RECORDS PERTAINING TO PATIENTS WHO ARE [...] BE BASED ON THE PRIMARY CLINICAL RECORDS. [facility] [employer], [facility]. provides no warranty or guarantee of the accuracy or completeness of information in this document.
[2024-08-13 03:35] LABS: Anion Gap 15 (5-15); BUN 11 mg/dL (4-19); BUN/Creat Ratio 8.8 RATIO (10-20); Calcium,Total 9.1 mg/dL (7.6-11.0); Carbon Dioxide 19.9 mmol/L (21.0-32.0); Chloride 101 mmol/L (98-108); Creatinine, Serum 1.19 mg/dL (0.70-1.20); EST Glomerular Filtration Rate 85 (>60); Estimated Creatinine Clearance 86.93 ml/min (50-250); Glucose 104 mg/dL (70-99); Potassium 3.8 mmol/L (3.3-5.1); Sodium Level 136 mmol/L (133-145)
[2024-08-13 03:36] LABS: Lactic Acid < 1.0 mmol/L (0.0-2.0)
[2024-08-13 04:12] VITALS: BP 112/77; PULSE 100; RESP 16; O2SAT 98
--- NOTE | 2024-08-13 04:42 | EX.ED.DYSGE1 ---
HPI History of Present Illness Chief Complaint: Headache Informant: patient Narrative Narrative: Patient is a 29-year-old male with past medical history of anxiety depression and fibromyalgia. He states he follows with the [facility] and was recently diagnosed with prostatitis and has just finished medication for it. He states over the last 3 days he has had a generalized headache that is sensitive to light and sound. He reports the headache came on gradually and increased over the course of hours. He states that he also has low back tension and spasm that is worse with motion. He states that there is no hematuria. He denies any recent trauma or excessive activity. He denies any loss of bowel or bladder control or IV drug use. He states has been no recent injections or surgical intervention. He states that he has been taking [id number] medications but his symptoms were not improving and secondary to this he comes in for evaluation [facility] Medical History Anxiety Depressed Fibromyalgia Hiatal hernia IBS (irritable bowel syndrome) Home Medications ?Medication ?Instructions ?Recorded ?Last Taken ?Type methocarbamol 500 mg tablet 1,000 mg (2 x 500 mg) PO 4X/DAY 08/13/24 Unknown Rx PRN Muscle pain/spasm #56 tabs Allergy/AdvReac Type Severity Reaction Status Date / Time No Known Allergies Allergy Verified 08/13/24 02:12 Social History Smoking Status: Current every day smoker tobacco type: e-cigarettes ROS ROS ED Constitutional Constitutional ED: Denies chills or fever(s) Eyes Eyes: Reports other Details: Positive photophobia ENT ENT ED: Denies rhinorrhea or sore throat Cardiovascular Cardiovascular: Denies chest pain Respiratory/Chest Respiratory/Chest: Denies cough or dyspnea Gastrointestinal Gastrointestinal: Reports nausea; Denies abdominal pain, diarrhea or vomiting Genitourinary Genitourinary ED: Denies dysuria or hematuria Musculoskeletal Musculoskeletal: Reports back pain and neck pain Integumentary Denies rash Neurologic Neurologic: Reports headache(s); Denies paresthesias or weakness Hematologic/Lymphatic Hematologic/Lymphatic: Denies easy bleeding or easy bruising EXAM Physical Exam Const Vital Signs: 08/13/24 02:12 08/13/24 04:12 08/13/24 04:46 Temperature 99.6 F H 99 F Temperature Source Oral Pulse Rate 121 H 100 100 Respiratory Rate 19 H 16 16 Blood Pressure 134/87 H 112/77 112/77 Blood Pressure Mean 102 88 88 Pulse Ox 100 98 98 Oxygen Delivery Method Room Air Room Air Positive well nourished and well developed General Appearance ED: well developed; Negative for pallor HEENT HEENT Narrative: Normocephalic atraumatic No tongue or lip swelling no oral lesions no airway edema or compromise No findings in the posterior pharynx to suggest infection Eyes PERRL and EOMs intact bilaterally General Eye ED: Negative for scleral icterus Neck supple Neck Narrative: No bony deformity or step-off of the cervical spine; no midline tenderness to palpation There is bilateral paracervical tension and spasm noted that worsens with sidebending and rotation No meningeal signs Resp normal respiratory effort and clear to auscultation bilaterally Cardio regular rhythm Rate: tachycardic and other Other Details: Tachycardic rate with regular rhythm No murmurs rubs or gallop Radial and carotid pulses are equal and symmetric GI normal to inspection, nondistended, normoactive bowel sounds, non-tender, non-distended and no masses Auscultation: normoactive bowel sounds Palpation: soft Back/Spine no CVA tenderness Back/Spine Narrative: No bony deformity or step-off of the thoracic or lumbar spine no midline tenderness to palpation There is left paralumbar tension and spasm noted. This worsens with sidebending and rotation No saddle anesthesia. Negative straight leg raise. No clonus or Babinski. Patellar reflexes are +2-4 bilaterally No overlying soft tissue changes to suggest trauma or infection Extremity normal to inspection Neuro oriented x3, CN's II-XII intact bilaterally and no sensory deficits noted Neuro Narrative: GCS of 15 Cranial nerves II through XII are grossly intact without focal neurologic deficit No pronator drift no dysmetria no truncal ataxia NIH stroke scale score of 0 Sensorium / Orientation: alert Motor Exam: strength 5/5 throughout Psych Mood & Affect: anxious Skin no rashes or lesions noted and no wounds Skin Narrative: No overlying soft tissue changes to suggest trauma or infection General Skin Exam: Negative for jaundice or pallor MDM MDM MDM Narrative Medical decision making narrative: Patient arrived to the ER tachycardic but otherwise with stable vitals. He reported recent diagnosis of prostatitis. He also reported pain in the left low back and headache. He states the headache came on gradually and increased over the course of hours. There is no report or signs of trauma to suggest skull fracture or traumatic subarachnoid or subdural hemorrhage. On exam he has muscular tension and spasm and this is most likely the cause of his symptoms as there is no true meningeal signs. He also denies loss of bowel or bladder control or IV drug use going against cauda equina or epidural abscess. As there is been no recent surgical interventions or injections my concern for discitis is low. In order to rule out potential infectious cause basic blood work was obtained and to make sure there is no sign of spontaneous bleed or brain mass a CT of the head was obtained. CT of the head revealed no acute findings and laboratory studies were only positive for an elevated CRP. This could be from his recent prostatitis diagnosis. As his lactic acid white blood cell count and neutrophil count and ESR are also normal I do not feel there is findings worrisome for systemic infection and there is no need for a lumbar puncture. After receiving IV fluid Toradol Benadryl Reglan and Norflex the patient did report near resolution of his symptoms. His neurologic exam remained normal and his vital stabilized with improvement of his pain. Therefore at this time I do not feel there is need for further intervention or admission and he is otherwise safe for discharge History & Record Review Discussion w/independent historian: Patient Lab Data Attestation: I reviewed the patient's lab results. Labs: Laboratory Results - last 24 hr 08/13/24 08/13/24 02:24 02:57 WBC 9.7 RBC 5.18 Hgb 16.1 Hct 45.4 MCV 87.6 MCH 31.1 MCHC 35.5 RDW Std Deviation 38.5 RDW Coeff of Magalys 11.9 Plt Count 229 MPV 10.6 Immature Gran % (Auto) 0.300 Neut % (Auto) 70.1 H Lymph % (Auto) 17.2 L [place] % (Auto) 11.9 H Eos % (Auto) 0.0 Baso % (Auto) 0.5 Absolute Neuts (auto) 6.8 Absolute Lymphs (auto) 1.66 Nucleated RBC % 0 ESR 6 Sodium 136 Potassium 3.8 Chloride 101 Carbon Dioxide 19.9 L Anion Gap 15 BUN 11 Creatinine 1.19 Estim Creat Clear Calc 86.93 Est GFR (MDRD) Non-Af 85 BUN/Creatinine Ratio 8.8 L Glucose 104 H Lactic Acid < 1.0 Calcium 9.1 C-React Prot Ext Range 54.90 H Radiography Diagnostic Testing: Clinical Impression(s) from Imaging Studies Brain CT 08/13/24 02:45 IMPRESSION: Normal unenhanced CT scan of the brain. Reading Location: [place] [address] Discharge Plan Triage Chief Complaint: Headache ED Provider: Josesito Ralph Dx/Rx/DC Orders Clinical Impression: Cephalgia, Muscle spasm, Anxiety and depression, Fibromyalgia Instructions: ED Headache Unspecified, ED Muscle Spasm Prescriptions: New methocarbamol 500 mg tablet 1,000 mg PO 4X/DAY PRN (Reason: Muscle pain/spasm) Qty: 56 0RF Stand Alone Forms: ED Work / School Excuse Primary Care Provider: Martha Ceja Referrals: Martha Ceja [Primary Care Provider] - Activity Restrictions/Additional Instructions: Your workup was only positive for 1 marker of inflammation in your CRP which is nonspecific and could be related to your recent bout of prostatitis. Otherwise your labs revealed no clinically significant findings and your head CT is normal. I do feel that your symptoms are related to muscular tension and spasm and therefore take the muscle relaxer as directed. Follow-up with your family doctor for repeat evaluation and return to the ER should you have any further concerns Print Language: Palauan Disposition Disposition: Home, Self Care Discharge Date/Time: 08/13/24 04:55
[2024-08-13 04:46] VITALS: BP 112/77; PULSE 100; RESP 16; TEMP 37.2; O2SAT 98
== END 2024-08-13 04:55 | disposition home or self-care (01) ==
PROVIDERS: Emergency Provider Emergency Medicine; Visit Provider Emergency Medicine
DX: R51.9 Headache, unspecified (principal); F41.9 Anxiety disorder, unspecified; F32.A Depression, unspecified; M62.838 Other muscle spasm; M79.7 Fibromyalgia; F17.290 Nicotine dependence, other tobacco product, uncomplicated
CPT/HCPCS: 70450; 80048; 83605; 85025; 85652; 86140; 96361; 96374; 96375; 99283; A4216

== ENCOUNTER 2024-08-17 19:42 | Emergency (ER) | payer OTHER, SELFPAY ==
[2024-08-17 19:42] VITALS: BP 127/81; PULSE 102; RESP 14; TEMP 35.6; O2SAT 99; BMI 22.2
--- NOTE | 2024-08-17 20:24 | EDS_ITS ---
HPI History of Present Illness Chief Complaint: Rash Detail of Chief Complaint: Rash second division trigeminal nerve bilaterally lateral right and left or Informant: patient Onset/Context/Timing Onset: Today Context: Sudden Onset Timing: Continuous Quality: Rash lateral right and left orbit Location: Lateral left and right orbital Current Severity: Mild Maximum Severity: Mild Worsened by: Nothing Relieved by: Nothing Associated Symptoms Associated Symptoms: Paresthesias yesterday prior to the appearance of the rash Narrative Narrative: Patient is four 9-year-old male. Presently being treated for prostatitis. He states he is sexually active with 1 partner. His partner is female. He is heterosexual. He denies history of STI. He denies history of shingles. 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 He has no ocular symptoms. He denies photophobia, change in vision or eye pain. Prior similar symptoms: Yes Recent Illness/Hospitalization: No PFSH PFSH Medical History Hiatal hernia Fibromyalgia Depressed Anxiety IBS (irritable bowel syndrome) Home Medications ?Medication ?Instructions ?Recorded ?Last Taken ?Type methocarbamol 500 mg tablet 1,000 mg (2 x 500 mg) PO 4 X/DAY 08/13/24 Unknown Rx PRN Muscle pain/spasm #56 tabs famciclovir 500 mg tablet 500 mg PO Q8H 7 days #21 tab s 08/17/24 Unknown Rx Allergy/AdvReac Type Severity Reaction Status Date / Time No Known Allergies Allergy Verified 08/13/24 02:12 Social History Smoking Status: Current every day smoker tobacco type: e-cigarettes ROS ROS ED Constitutional Constitutional ED: Denies chills, fever(s) or subjective Eyes Eyes: Denies blurry vision, change in vision or diplopia ENT ENT ED: Denies rhinorrhea or sore throat Integumentary Reports rash EXAM Physical Exam Const Vital Signs: 08/17/24 19:42 Temperature 96.1 F L Temperature Source Temporal Pulse Rate 102 H Respiratory Rate 14 Blood Pressure 127/81 H Blood Pressure Mean 96 Pulse Ox 99 Oxygen Delivery Method Room Air Positive well nourished and well developed General Appearance ED: well developed and NAD HEENT Reports moist mucous membranes HEENT Narrative: Head is atraumatic normocephalic. Ears normal. TMs normal. Nares patent. No conjunctival lesions. No oral lesions. Patient has headache rash bilaterally consistent with herpes gladiatorum. He has no other symptoms. The rash is sensitive. There is no cranial nerve deficit. Eyes PERRL and EOMs intact bilaterally Eyes Narrative: No conjunctival lesions. No photophobia. General Eye ED: Negative for pale conjunctiva or scleral icterus Neck no lymphadenopathy, supple and no JVD Neuro oriented x3 and CN's II-XII intact bilaterally Sensorium / Orientation: alert Psych mental status grossly normal Skin Skin Narrative: Herpetic rash right and left periorbital region MDM MDM MDM Narrative Medical decision making narrative: Patient has herpetic rash. Since onset is today will treat with antiviral. [facility] Discharge Plan Triage Chief Complaint: Rash ED Provider: Pacheco Andino Dx/Rx/DC Orders Clinical Impression: Herpes gladiatorum, Anxiety and depression Instructions: Herpes: Caring for Sores Prescriptions: New famciclovir 500 mg tablet 500 mg PO Q8H 7 Days Qty: 21 0RF No Action methocarbamol 500 mg tablet 1,000 mg PO 4X/DAY PRN (Reason: Muscle pain/spasm) Qty: 56 0RF Primary Care Provider: Martha Ceja Referrals: Martha Ceja [Primary Care Provider] - 3-5 Days if not improving Print Language: Chinese Disposition Disposition: Home, Self Care
[2024-08-17 20:47] VITALS: BP 127/81; PULSE 102; RESP 14; TEMP 35.6; O2SAT 99
== END 2024-08-17 20:48 | disposition home or self-care (01) ==
PROVIDERS: Emergency Provider Emergency Medicine; Visit Provider Emergency Medicine
DX: B00.1 Herpesviral vesicular dermatitis (principal); F32.A Depression, unspecified; F41.9 Anxiety disorder, unspecified; F17.290 Nicotine dependence, other tobacco product, uncomplicated
CPT/HCPCS: 99282

== ENCOUNTER 2024-09-17 18:51 | Emergency (ER) | payer OTHER, SELFPAY ==
[2024-09-17] VITALS (9 sets, daily range): BP systolic 102–147; BP diastolic 62–96; PULSE 71–133; RESP 18–28; TEMP 36.3; O2SAT 96–100; BMI 20.7
--- NOTE | 2024-09-17 19:27 | EDS_ITS ---
HPI HPI - Psych History of Present Illness Chief Complaint: Suicidal Informant: patient Onset/Context/Timing Onset: Month(s) (2) Context: Gradual Onset Timing: Continuous Worsened by: Situational factors Relieved by: Nothing Associated Symptoms Associated Symptoms - Psych: Positive for Depressed, Change in Eating, Change in sleeping, Guilt and Hopelessness; Negative for Paranoia, Visual Hallucinations or Auditory Hallucinations Specific plan (suicidal thought): Carbon monoxide poisoning Narrative Narrative: Patient presents with suicide attempt that occurred tonight. Patient attempted suicide by carbon monoxide. Patient was in his garage with the car running and all of the doors were closed. Patient states he was exposed to the exhaust for approximately 30 minutes. Patient states that there are several factors which made him want to attempt suicide. Patient states he has been feeling lonely and hopeless. Patient admits to decrease in his eating and sleeping habits. Patient admits to some guilt. Patient states he does see a psychiatrist through the [place] system. Patient states his suicidal thoughts have been getting worse over the past 2 months. [facility] Medical History Suicide attempt Hiatal hernia Fibromyalgia Depressed Anxiety IBS (irritable bowel syndrome) Home Medications ?Medication ?Instructions ?Recorded ?Last Taken ?Type escitalopram oxalate 10 mg tablet 10 mg PO DAILY 09/17 Unknown History (Lexapro) hydroxyzine HCl 10 mg tablet 10 mg PO TID PRN anxiety 09/17/24 Unknown History lorazepam 1 mg tablet 1 mg PO TID PRN anxiety 08/25 07/18 Unknown History Allergy/AdvReac Type Severity Reaction Status Date / Time No Known Allergies Allergy Verified 09/17/24 18:54 Surgical History no surgical history no surgical history Social History housing: house Smoking Status: Current every day smoker tobacco type: e-cigarettes ROS ROS ED Constitutional Constitutional ED: Denies chills or fever(s) Eyes Eyes: Reports blurry vision; Denies diplopia ENT ENT ED: Denies rhinorrhea or sore throat Cardiovascular Cardiovascular: Reports chest pain; Denies palpitations Respiratory/Chest Respiratory/Chest: Denies cough or dyspnea Gastrointestinal Gastrointestinal: Reports nausea and vomiting Genitourinary Genitourinary ED: Denies dysuria or hematuria Musculoskeletal Musculoskeletal: Reports back pain and neck pain Integumentary Denies abscess or rash Neurologic Neurologic: Reports headache(s); Denies weakness Psychiatric Psychiatric: Reports depression, suicidal ideation and suicidal thoughts Allergic/Immunologic Allergic/Immunologic ED: Denies mouth swelling or urticaria EXAM Physical Exam Const Vital Signs: 09/17/24 18:52 09/17/24 19:21 09/17/24 19:22 Temperature 97.3 F L Temperature Source Temporal Pulse Rate 115 H Respiratory Rate 22 H Respiratory Effort Short of Breath Respiratory Pattern Tachypnea Blood Pressure 147/96 H Blood Pressure Mean 113 Pulse Ox 100 100 Oxygen Delivery Method Room Air Non-Rebreather Oxygen Flow Rate (L/min) 15 09/17/24 19:23 09/17/24 19:52 09/17/24 20:00 Temperature Temperature Source Pulse Rate 71 120 H Respiratory Rate 25 H 25 H Respiratory Effort Respiratory Pattern Blood Pressure 138/94 H 133/91 H Blood Pressure Mean 108 105 Pulse Ox 100 100 99 Oxygen Delivery Method Non-Rebreather Non-Rebreather Non-Rebreather Oxygen Flow Rate (L/min) 15 15 09/17/24 21:00 09/17/24 21:16 09/17/24 22:00 Temperature Temperature Source Pulse Rate 128 H 120 H 133 H Respiratory Rate 21 H 22 H 28 H Respiratory Effort Respiratory Pattern Blood Pressure 130/89 H 125/82 H 120/75 Blood Pressure Mean 102 96 90 Pulse Ox 100 96 96 Oxygen Delivery Method Room Air Room Air Oxygen Flow Rate (L/min) 09/17/24 23:00 Temperature Temperature Source Pulse Rate 115 H Respiratory Rate 18 Respiratory Effort Respiratory Pattern Blood Pressure 102/62 Blood Pressure Mean 75 Pulse Ox 97 Oxygen Delivery Method Room Air Oxygen Flow Rate (L/min) Positive well nourished and well developed General Appearance ED: well developed and NAD HEENT Reports moist mucous membranes Neck supple and no JVD Resp normal respiratory effort and clear to auscultation bilaterally Cardio Rate: tachycardic Rhythm: regular rhythm GI non-tender and non-distended Palpation: soft Neuro oriented x3, CN's II-XII intact bilaterally, no sensory deficits noted and deep tendon reflexes 2+ bilaterally Welch Coma Scale: document GCS findings Spontaneous Obeys Commands Oriented 15 Sensorium / Orientation: alert Motor Exam: strength 5/5 throughout Psych Appearance: grossly normal Attitude: calm Activity / Motor Behavior: appropriate eye contact Speech: soft Mood & Affect: depressed and flat affect Thought Content: suicidality, No homicidality, No delusion(s) and No hallucination(s) MDM MDM MDM Narrative Medical decision making narrative: Suicide precautions were maintained. Patient was placed on nonrebreather oxygen. Medical screening labs will be obtained. CBC will be obtained to a ssess for leukocytosis and anemia. Basic metabolic profile will be obtained to assess for electrolyte abnormality and renal function. Carboxyhemoglobin level will be obtained to assess for carbon monoxide poisoning serum alcohol level will be obtained to assess for alcohol intoxication. Urine drug screen will be obtained to assess for substance abuse. Chest x-ray will be obtained to assess for congestive heart failure, pulmonary edema, pneumonia. Lab Data Attestation: I reviewed the patient's lab results. Lab results narrative: CBC was reviewed and was within normal limits. Basic metabolic profile was reviewed and was within normal limits. Carboxyhemoglobin was reviewed and was normal at 1.3. Serum alcohol level was reviewed and was less than 10.1. Urine drug screen was reviewed and was negative. Labs: Laboratory Results - last 24 hr 09/17/24 09/17/24 19:40 21:57 WBC 6.8 RBC 5.55 Hgb 17.2 H Hct 49.1 MCV 88.5 MCH 31.0 MCHC 35.0 RDW Std Deviation 42.4 RDW Coeff of Magalys 12.9 Plt Count 244 MPV 9.9 Immature Gran % (Auto) 0.100 Neut % (Auto) 91.9 H Lymph % (Auto) 4.8 L [place] % (Auto) 2.6 Eos % (Auto) 0.0 Baso % (Auto) 0.6 Absolute Neuts (auto) 6.3 Absolute Lymphs (auto) 0.33 L Nucleated RBC % 0 Sodium 139 Potassium 3.7 Chloride 104 Carbon Dioxide 22.4 Anion Gap 12 BUN 16 Creatinine 1.04 Estim Creat Clear Calc 89.05 Est GFR (MDRD) Non-Af 100 BUN/Creatinine Ratio 14.9 Glucose 110 H Calcium 9.1 Urine Opiates Screen NEGATIVE U Buprenorphine Qual NEGATIVE Ur Oxycodone Screen NEGATIVE Urine Methadone Screen NEGATIVE Urine Fentanyl Screen NEGATIVE Ur Barbiturates Screen NEGATIVE Ur Phencyclidine Scrn NEGATIVE Ur Amphetamines Screen NEGATIVE U Benzodiazepines Scrn NEGATIVE Urine Cocaine Screen NEGATIVE U Cannabinoids Screen NEGATIVE Ethyl Alcohol < 10.1 ABG Data Attestation: I personally reviewed and interpreted this ABG as follows: Interpretation: Carboxyhemoglobin was reviewed and was normal at 1.3. ABG results: ABG 09/17/24 09/17/24 19:40 20:03 VBG Carboxyhemoglobin 1.3 Carboxyhemoglobin ORDER TUBE Radiography Chest X-Ray - ED: 1 View, Read by ED Physician, Read by Radiologist and No Acute Disease Diagnostic Testing: Clinical Impression(s) from Imaging Studies Chest X-Ray 09/17/24 19:52 IMPRESSION: No acute cardiopulmonary abnormality. Reading Location: [facility] Portable 1 view chest x-ray was obtained. On my independent interpretation, lung crandall are clear. There is normal cardiac silhouette. Bony thorax is normal. There is no acute process noted. Radiologist also interpreted the x- ray and agrees. EKG Initial EKG: Attestation: I personally reviewed and interpreted this EKG as follows: Interpretation: No Acute Injury Pattern and Sinus Tachycardia (120) Comments: EKG was obtained. On my independent interpretation, it showed a sinus tachycardia with a rate of 120. ID interval, QRS interval, and QTc intervals were all normal. [place] was normal. There are no acute ST or T wave changes. Prior EKG tracings: not available for review Prior: No Prior Management Discussion w/another healthcare provider: asbestos hazard abatement worker/Case management Treatment and Re-Evaluation Narrative: Suicide precautions were maintained. Patient is medically cleared for psychiatric placement. [employer] slip was filled out and placed on the chart. asbestos hazard abatement worker was in to evaluate the patient and agreed with psychiatric placement. She will attempt to find placement for the patient. Care of the patient was turned over to the oncoming physician pending psychiatric placement. Discharge Plan Triage Chief Complaint: Suicidal ED Provider: Ludwig Campbell Dx/Rx/DC Orders Clinical Impression: Suicide attempt, Depression Prescriptions: No Action escitalopram oxalate [Lexapro] 10 mg tablet 10 mg PO DAILY lorazepam 1 mg tablet 1 mg PO TID PRN (Reason: anxiety) hydroxyzine HCl 10 mg tablet 10 mg PO TID PRN (Reason: anxiety) Primary Care Provider: Martha Ceja Referrals: Martha Ceja [Primary Care Provider] - Print Language: Ecuadorean Disposition Disposition: Psychiatric Hospital or Unit
[2024-09-17 19:52] LABS: Hematocrit 49.1 % (40-54); Hemoglobin 17.2 g/dL (13.0-16.5); Immature Granulocytes Count 0.010 X10^3/uL (0.0-0.0); Mean Corp Hgb Conc 35.0 g/dL (32-36); Mean Corpuscular Volume 88.5 fL (80-94); Mean Platelet Vol. 9.9 fl (6.2-12.0); NRBC Flagged by Analyzer 0 % (0-5); POSITIVE DIFFERENTIAL YES; Platelet Count 244 K/mm3 (150-450); RBC Distribution Width CV 12.9 % (11.6-14.6); RBC Distribution Width SD 42.4 fl (35.1-43.9); Red Blood Count 5.55 M/mm3 (4.6-6.2); White Blood Count 6.8 K/mm3 (4.4-11.0)
--- NOTE | 2024-09-17 19:52 | RAD_ITS ---
PROCEDURE: CHEST 1 VIEW (PORTABLE) 09/17/2024 REASON FOR EXAM: CHEST PAIN TECHNIQUE: Frontal view of the chest. COMPARISON: None. FINDINGS: The heart is normal in size. The lungs are clear. No pleural effusion or pneumothorax. No acute osseous abnormalities. RAD/Chest 1 View (Portable) IMPRESSION: No acute cardiopulmonary abnormality. Reading Location: [id number]
--- NOTE | 2024-09-17 19:55 | ED.RN ---
Per Tenisha, SERVER SECURITY ADMINISTRATOR, patient described multiples plans to commit suicide including hanging, overdose, and shooting himself with a gun. Per PD, patient admitted to having a gun in his car. Weapon to be confiscated by PD at this time. Pt will be pink slipped.
[2024-09-17 20:09] LABS: Carboxyhemoglobin Order ORDER TUBE
[2024-09-17 20:11] LABS: Alcohol, Blood (Medical)-Serum < 10.1 mg/dL (<=10.0)
[2024-09-17 20:12] LABS: Anion Gap 12 (5-15); BUN 16 mg/dL (4-19); BUN/Creat Ratio 14.9 RATIO (10-20); Calcium,Total 9.1 mg/dL (7.6-11.0); Carbon Dioxide 22.4 mmol/L (21.0-32.0); Chloride 104 mmol/L (98-108); Estimated Creatinine Clearance 89.05 ml/min (50-250); Glucose 110 mg/dL (70-99); Potassium 3.7 mmol/L (3.3-5.1)
--- NOTE | 2024-09-17 20:13 | PCA ---
[facility] CALLED @ 2013. [facility], WILL HAVE TO TRY TO GET PT INTO [facility] BEFORE ATTEMPTING PLACEMENT ELSEWHERE.
[2024-09-17 20:22] LABS: Carboxyhemoglobin Frac (CO) 1.3 % (0.0-1.5)
--- NOTE | 2024-09-17 21:32 | CM.ED ---
Social Work Psychiatric Assessment Reason for consult: Mental Health Informant(s): ?Patient , medical record Chief Complaint: ?Patient presented to the ED after attempting suicide by carbon monoxide poisoning.? Patient sat in his running car with garage door closed for approx. 30 min.? Patient expressed hopelessness, feelings of overwhelming guilt and remorse, and profound loneliness.? Patient states that he feels that everyone in his life would be better if he was gone, that he is unable to find motivation to improve his circumstances, and unable to find micky in activities or tasks.? Patient reports having suicidal ideations over the last several months, that the ideations have lasted hours at a time, and he is unable to control ?the thoughts.? Patient also reports to decrease in sleep, stating he wakes up constantly? Patient reports to a severe decrease in appetite that has resulted in a 20 pound weight loss.?? Patient denies homicidal ideations, denies auditory or visual hallucinations and denies delusional thoughts. 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 Mental Health Treatment/History: ?Patient is currently seeing a psychologist.? Has been diagnosed with Anxiety, Depression, BPD Triggers/Stressors to mental health: ?thinking about his ex, having goals and ambitions that he is not able to achieve Coping Skills: ?socializing History of Abuse (physical/sexual/verbal/emotional): denies Substance Abuse Current/Historical: denies Risk to Self/Others: ? Suicidal (thought/plan/intent/attempt): ?patient attempted suicide this evening by carbon-dioxide poisoning, also had ammunition and a gun available ? Access to Lethal Means: yes ? Homicidal (thought/plan/intent/attempt): ?none ? History of Violence (self/others/objects): ?none Mental Status Exam: ??? Orientation: patient is alert and oriented x 3 ??? Memory: ?intact Appearance/General Behavior: ?patient is clean, talkative Mood/Affect: ?elevated, anxious, tearful Communication Pattern: ?pressured, rapid speech Thought Process: ?appropriate for situation General Intellectual Functioning: average Judgment: ?fair Insight: fair [place] SS[place] SUICIDAL IDEATION Ask questions 1 and 2. If both are negative, proceed to ?Suicidal Behavior? section. If the answer question 2 is yes, ask questions 3, 4, 5.? If the answer to question 1 and/or 2 is ?yes?, complete ?Intensity of Ideation? section below. 1. Wish to be ? Subject endorses thoughts about a wish to be or not alive anymore or wish to fall asleep and not wake up. Have you wished you were or wished you could go to sleep and not wake up? Lifetime: Time He/She [place] Most Suicidal: ?yes Past 1 month: yes Please Describe if yes: ? patient reports to suicidal wishing to be 2. Non-Specific Active Suicidal Thoughts General, non-specific thoughts of wanting to end one?s life/commit suicide (e.g., ?I?ve thought about killing myself?) without thoughts of ways to kills oneself/associated methods, intent, or plan during the assessment period.? Have you actually had any thoughts of killing yourself? Lifetime: Time He/She [place] Most Suicidal: ?yes Past 1 month: yes Please Describe if yes: patient has had thoughts of killing self 3. Active Suicidal Ideation with Any Methods (Not Plan) without Intent to Act Subject endorses thoughts of suicide and has thought of at least one method during the assessment period.? This is different than a specific plan with time, place, or method details worked out (e.g., thought of method to kills self but not a specific plan).? Includes person who would say ?I thought about thanking an overdose, but I never made a specific plan as to when, where or how. I would actually do it, and I would never go through with it.? Have you been thinking about how you might do this? Lifetime: Time He/She [place] Most Suicidal: ?yes Past 1 month:? yes Please Describe if yes: patient has had thoughts of how to kill himself 4. Active Suicidal Ideation with Some Intent to Act, without Specific Plan Active suicidal thoughts of kills oneself fand subject reports having some intent to act on such thoughts, as opposed to ?I have the thoughts but I definitely will not do anything about them.? Have you had these thoughts and had some intention of acting on them? Lifetime: Time He/She [place] Most Suicidal: yes Past 1 month: yes Please Describe if yes: patient has had intention of acting on thoughts 5. Active Suicidal Ideation with Specific Plan and Intent Thoughts of kills oneself with details of plan fully or partially worked out and subject has some intent to care it out. Have you started to work out or worked out the details of how to kill yourself? Do you intend to carry out this plan? Lifetime: Time He/She [place] Most Suicidal: yes Past 1 month: ???yes Please Describe if yes: patinet had plan of carbon dioxide poisoning or shooting self INTENSITY OF IDEATION The following feature should be rated with respect to the most sever type of ideation (i.e., 1-5 from above, with 1 being the least severe and 5 being the most severe). Ask about time he/she/they were feeling the most suicidal.? Lifetime - Most Severe Ideation: Type # (1-5): 4 Description: patient had thoughts of shooting self Recent - Most Severe Ideation: Type # (1-5): 5 Description: patient attempted suicide this evening Frequency How many times have you had these thoughts? Lifetime: (1) Less than once a week??? (2) Once a week?? (3)? 2-5 times in week??? (4) Daily or almost daily??? (5) Many times each day Recent, Past 1 month:? (1) Less than once a week??? (2) Once a week?? (3)? 2-5 times in week??? (4) Daily or almost daily??? (5) Many times each day Duration When you have the thoughts, how long do they last? Lifetime: (1) Fleeting - few seconds or minutes? (2) Less than 1 hour/some of the time? (3) 1-4 hours/a lot of time? 4) 4-8 hours/most of day? (5) More than 8 hours/persistent or continuous Recent, Past 1 month:? (1) Fleeting - few seconds or minutes? (2) Less than 1 hour/some of the time? (3) 1-4 hours/a lot of time? 4) 4-8 hours/most of day? (5) More than 8 hours/persistent or continuous Controllability Could/can you stop thinking about killing yourself or wanting to if you want to? Lifetime:? (1) Easily able to control thoughts?? (2) Can control thoughts with little difficulty??? (3) Can control thoughts with some difficulty??? 4) Can control thoughts with a lot of difficulty? (5) Unable to control thoughts?? (0) Does not attempt to control thoughts Recent, Past 1 month: (1) Easily able to control thoughts?? (2) Can control thoughts with little difficulty??? (3) Can control thoughts with some difficulty??? 4) Can control thoughts with a lot of difficulty? (5) Unable to control thoughts?? (0) Does not attempt to control thoughts Deterrents Are there things - anyone or anything (e.g., family, latter-day, pain of ) - that stopped you from wanting to or acting on thoughts of committing suicide? Lifetime:? (1) Deterrents definitely stopped you from attempting suicide? (2) Deterrents probably stopped you?? (3) Uncertain that deterrents stopped you? (4) Deterrents most likely did not stop you? (5) Deterrents definitely did not stop you?? 0) Does not apply??? Recent:??? (1) Deterrents definitely stopped you from attempting suicide? (2) Deterrents probably stopped you?? (3) Uncertain that deterrents stopped you? (4) Deterrents most likely did not stop you? (5) Deterrents definitely did not stop you?? 0) Does not apply??? Reasons for Ideation What sort of reasons did you have for thinking about wanting to or killing yourself? Was it to end the pain or stop the way you were feeling (in other words you couldn?t go on living with this pain or how you were feeling) or was it to get attention, revenge or a reaction from others? Or both? Lifetime: (1) Completely to get attention, revenge or a reaction from?? (2) Mostly to get attention, revenge or a reaction from others? (3) Equally to get attention, revenge or a reaction from others? and to end/stop the pain?? ( 4) Mostly to end or stop the pain (you couldn?t go on living with the pain or how you were feeling)??? (5) Completely to end or stop the pain (you couldn?t go on living with the pain or? how you were feeling)??? (0)? Does not apply? Recent: (1) Completely to get attention, revenge or a reaction from?? (2) Mostly to get attention, revenge or a reaction from others? (3) Equally to get attention, revenge or a reaction from others? and to end/stop the pain??? (4) Mostly to end or stop the pain (you couldn?t go on living with the pain or how you were feeling)?? (5) Completely to end or stop the pain (you couldn?t go on living with the pain or? how you were feeling)?? (0)? Does not apply? SUICIDAL BEHAVIOR Actual Attempt: A potentially self-injurious act committed with at least some wish to , as a result of act.? Behavior was in part thought of as method to kill oneself.? Intent does not have to be 100%.? If there is any intent/desire to associated with the act, then it can be considered an actual suicide attempt.? There does not have to be any injury of harm, just the potential for injury or harm.? If person pulls trigger while gun is in mouth, but gun is broken so no injury results, this is considered an attempt.? Inferring intent:? Even if an individual denies intent/wish to , it may be inferred clinically from the behavior or circumstances.? For example, a highly lethal act that is clearly not an accident so no other intent but suicide can be inferred (e.g. gunshot to head, jumping from window of a high floor/story).? Also, if someone denies intent to , but they thought that what they did could be lethal, intent may be inferred.? Have you made a suicide attempt? Have you done anything to harm yourself? Have you done anything dangerous where you could have ? What did you do? Did you as a way to end your life? Did you want to (even a little) when you ? Were you trying to end your life when you ? Or did you think it was possible you could have from ? Or did you do it purely for other reasons/without ANY intention of killing yourself like to relieve stress, feel better, get sympathy, or get something else to happen)? (Self -Injurious Behavior without suicidal intent) Lifetime: no Past 3 months: yes If yes, describe: patient attempted suicide by carbon monoxide poisoning Total # of Attempts in His/Her Lifetime: 1 Total # of attempts in Past 3 months: 1 Has person engaged in Non-Suicidal Self-Injurious Behavior? Lifetime: no Past 3 months: no Interrupted Attempt: When the person is interrupted (by an outside circumstance) from starting the potentially self-injurious act (if not for that, actual attempt would have occurred).? Overdose: Person has pills in hand but is stopped from ingesting. Once they ingest any pills, this becomes an attempt rather than an interrupted attempt. Shooting: Person has gun pointed toward self, gun is taken away by someone else, or is somehow prevented from pulling trigger. Once they pull the trigger, even if the gun fails to fire, it is an attempt. Jumping: Person is poised to jump, is grabbed and taken down from ledge.? Hanging: Person has noose around neck but has not yet started to hang self -is stopped from doing so.? Has there been a time when you started to do something to end your life but someone or something stopped you before you did anything? Lifetime:yes Past 3 months: no If yes, describe: ?patient was stopped from getting gun Total # of interrupted attempts in His/Her Lifetime: Total # of interrupted attempts in Past 3 months: Aborted or Self-Interrupted Attempt:? When person begins to take steps toward making a suicide attempt, but stops themselves before they have actually engaged in any self-destructive behavior. Examples are like interrupted attempts, except that the individual stops him/herself, instead of being stopped by something else. Has there been a time when you started to do something to try to end your life, but you stopped yourself before you did anything? Lifetime: no Past 3 months: no If yes, describe: Total # of aborted or self-interrupted attempts in His/Her Lifetime: Total # of aborted or self-interrupted attempts in Past 3 months: Preparatory Acts or Behavior:? Acts or preparation towards imminently making a suicide attempt. This can include anything beyond a verbalization or thought, such as assembling a specific method (e.g., buying pills, purchasing a gun) or preparing for one?s by suicide (e.g., giving things away, writing a suicide note). Have you taken any steps towards making a suicide attempt or preparing to kill yourself (such as collecting pills, getting a gun, giving valuables away or writing a suicide note)? Lifetime: no Past 3 months: no If yes, describe: ? Total # of preparatory acts in His/Her Lifetime: Total # of preparatory acts in Past 3 months: Lethality/Medical Damage:??? 0. No physical damage or very minor physical damage (e.g., surface scratches). 1. Minor physical damage (e.g., lethargic speech; first-degree ascencio; mild bleeding; sprains). 2. Moderate physical damage; medical attention needed (e.g., conscious but sleepy, somewhat responsive; second-degree ascencio; bleeding of major vessel). 3. Moderately severe physical damage; medical hospitalization and likely intensive care required (e.g., comatose with reflexes intact; third-degree ascencio less than 20% of body; extensive blood loss but can recover; major fractures). 4. Severe physical damage; medical hospitalization with intensive care required (e.g., comatose without reflexes; third-degree ascencio over 20% of body; extensive blood loss with unstable vital signs; major damage to a vital area). 5. Most Recent attempt Date:09/17 Code:2 Most Lethal Attempt Date: 09/17 Code:2 Initial/First Attempt Date:09/17 Code: 2 Potential Lethality: Only Answer if Actual Lethality=0 Likely lethality of actual attempt if no medical damage (the following examples, while having no actual medical damage, had potential for very serious lethality: put gun in mouth and pulled the trigger but gun fails to fire so no medical damage; laying on train tracks with oncoming train but pulled away before run over). 0 = Behavior not likely to result in injury 1 = Behavior likely to result in injury but not likely to cause 2 = Behavior likely to result in despite available medical care Most Recent Attempt Code:1 Most Lethal Attempt Code:1 Initial/First Attempt Code: 1 Assessment Summary: Patient attempted suicide by carbon monoxide poisoning, also had a loaded gun. Patient reports increase in depressive symptoms that include inability to sleep and 20 pound weight loss. Due to this, inpatient psychiatric hospitalization is recommded to decrease suicidal ideations and depressive symptoms. Physician consulted and in agreement with same. Plan: Inpatient psychiatric hospitalization pending acceptance. Mona Clement, OPTICS TEST TECHNICIAN, MANAGER BEVERAGE ?
--- NOTE | 2024-09-17 21:54 | CM.ED ---
Social Work Social Work contacted [facility] bed [facility] and spoke with Lina. Referral sent to fax: [phone]. Mona Clement, SEAL EXTRUSION OPERATOR, SURGICAL TECH
[2024-09-17 22:43] LABS: Barbiturate Urine NEGATIVE (< 200 ng/mL); Benzodiazepine Urine NEGATIVE (< 200 ng/mL); PCP Urine NEGATIVE (< 25 ng/mL); THC Urine NEGATIVE (< 50 ng/mL)
--- NOTE | 2024-09-17 22:58 | EKG12_ITS ---
Test Reason : Blood Pressure : */* mmHG Vent. Rate : 120 BPM Atrial Rate : 120 BPM P-R Int : 126 ms QRS Dur : 82 ms QT Int : 300 ms P-R-T Axes : 72 42 14 degrees QTcB Int : 424 ms Sinus tachycardia Nonspecific T wave abnormality Abnormal ECG Confirmed by MARGARET SAUCEDO, MOY ([id number]), legal editor HENRY GREEN ([id number]) on 09/20/2024 9:01:28 AM Referred By: BALDO Confirmed By: MOY ROBLES MD
[2024-09-18 00:13] VITALS: BP 110/64; PULSE 102; RESP 18; O2SAT 99
[2024-09-18 02:44] VITALS: BP 110/64; PULSE 102; RESP 18; TEMP 36.3; O2SAT 99
== END 2024-09-18 03:14 ==
PROVIDERS: Emergency Provider Emergency Medicine; Visit Provider Emergency Medicine
DX: T14.91XA Suicide attempt, initial encounter (principal); T58.02XA Toxic effect of carbon monoxide from motor vehicle exhaust, intentional self-harm, initial encounter; F32.A Depression, unspecified; F41.9 Anxiety disorder, unspecified; Z79.899 Other long term (current) drug therapy; F17.290 Nicotine dependence, other tobacco product, uncomplicated
CPT/HCPCS: 71045; 80048; 80307; 82077; 82375; 85025; 93005; 99285